=== PATIENT | male | born 1945 | race Caucasian/White ===

== ENCOUNTER → 2016-02-28 | Outpatient (CLI) | payer OTHER ==
[~2016-02-28] MED LIST: AMLO-110 PO; ASPI81TA28 PO; CIPR1TAB10 PO; CLC100 PO; CRD4 PO; DTR5 PO; FOLI400T41 PO; LISI20TA3 PO; LPR25 PO; NTRGSL/4 UT; NXM/40 PO; POLY335019 PO; ROSU20TA PO; RXC5 PO
== END | disposition home or self-care (01) ==
LOC: C.LABSPEC 10:33
PROVIDERS: ATTEND Urology
DX: C61 Malignant neoplasm of prostate (principal)

== ENCOUNTER → 2016-04-05 | Outpatient (CLI) | payer OTHER ==
[~2016-04-05] MED LIST changes: -LISI20TA3 PO
== END | disposition home or self-care (01) ==
LOC: C.LABPBG 12:10
PROVIDERS: ATTEND Urology
DX: C61 Malignant neoplasm of prostate (principal)

== ENCOUNTER → 2016-07-06 | Outpatient (CLI) | payer OTHER ==
[~2016-07-06] MED LIST changes: +LISI20TA3 PO
== END | disposition home or self-care (01) ==
LOC: C.LABPBG 12:10
PROVIDERS: ATTEND Urology
DX: C61 Malignant neoplasm of prostate (principal)

== ENCOUNTER → 2016-08-22 | Outpatient (CLI) | payer OTHER ==
[~2016-08-22] MED LIST changes: -CIPR1TAB10 PO; -LISI20TA3 PO
[2016-08-22 17:44] LABS: BASO % 0.8 %; BASO ABS # 0.06 K/uL (0-0.2); COMPLETE YES; EOS % 2.3 %; HEMATOCRIT 41.4 % (42-52); IG% 0.3 %; LYMPH % 12.8 %; LYMPH ABS # 0.93 K/uL (1.2-3.4); MEAN CELL VOLUME 96.7 fL (80-100); MEAN CORPUSCULAR HEMOGLOBIN 32.2 pg (25-34); MEAN CORPUSCULAR HGB CONC 33.3 g/dl (32-36); MEAN PLATELET VOLUME 10.1 fL (7.4-10.4); MONO % 6.9 %; NEUT % 76.9 %; PLATELET COUNT 186 K/uL (130-400); RED BLOOD COUNT 4.28 M/uL (4.7-6.1); WHITE BLOOD COUNT 7.26 K/uL (4.8-10.8)
[2016-08-22 18:39] LABS: AST/SGOT 16 U/L (15-37); BLOOD UREA NITROGEN 21 mg/dl (7-18); BUN/CREATININE RATIO 18.6 (10-20); CALCIUM 9.4 mg/dl (8.5-10.1); CARBON DIOXIDE 26 mmol/L (21-32); CHLORIDE 106 mmol/L (98-107); GLUCOSE 146 mg/dl (70-99); POTASSIUM 3.6 mmol/L (3.5-5.1); SODIUM 140 mmol/L (136-145)
[2016-08-22 18:45] LABS: ALB/GLOB RATIO 1.1 (0.9-2); ALKALINE PHOSPHATASE 60 U/L (45-117); ALT/SGPT 30 U/L (12-78)
== END | disposition home or self-care (01) ==
LOC: C.LABPBG 13:20
PROVIDERS: ATTEND Internal Medicine Hematology & Oncology
DX: D64.9 Anemia, unspecified (principal)

== ENCOUNTER → 2017-01-28 | Outpatient (CLI) | payer OTHER ==
[~2017-01-28] MED LIST changes: -AMLO-110 PO; -CRD4 PO; -DTR5 PO; -FOLI400T41 PO; +LISI20TA3 PO; -NXM/40 PO; -POLY335019 PO; -RXC5 PO
--- NOTE | 2017-01-28 12:11 | DIAGNOSTIC IMAGING REPORT ---
BONE SCAN WHOLE BODY HISTORY: Prostate carcinoma PROSTATE CANCER RADIOTRACER: 25.6 mCi Tc-99m MDP STUDY/IMAGES: Planar anterior and posterior whole body imaging was performed 3 hours following the intravenous administration of radiotracer. COMPARISON: 12/20/2015 FINDINGS: Bilateral renal activity is present. There are findings of mild scattered degenerative activity of the knees, shoulders, as well as spine. This is similar as compared to the prior study. There is no abnormal activity characteristics. There is increased activity of the xiphoid process unchanged from the prior exam. There is no evidence for metastatic disease pattern. IMPRESSION: 1. Scattered degenerative activity. 2. No evidence for metastatic bone disease. 3. No change from the prior study. The above report was generated using voice recognition software. It may contain grammatical, syntax or spelling errors. Electronically signed by: Romeo King M.D. 01/28/2017 12:10 PM Dictated Date/Time: 01/28/2017 12:08 PM
== END | disposition home or self-care (01) ==
LOC: C.NUCL 07:52
PROVIDERS: ATTEND Radiology Radiation Oncology
DX: C61 Malignant neoplasm of prostate (principal)

== ENCOUNTER → 2017-02-01 | Outpatient (CLI) | payer OTHER ==
[~2017-02-01] MED LIST changes: +GADAVIST IV PRN
--- NOTE | 2017-02-01 11:03 | DIAGNOSTIC IMAGING REPORT ---
PROSTATE MRI COMBO CLINICAL HISTORY: 72 years-old Male presenting with prostate cancer status post prostatectomy. PSA 0.147 ng/mL. COMPARISON STUDY: Pelvic CT dated 12/20/2015. Nuclear bone scan dated 01/28/2017. TECHNIQUE: Multisequence, multiplanar MR imaging of the prostate was performed before and after the administration of intravenous contrast. Additional postprocessing was performed on a separate [employer] workstation by the radiologist for 3-D volumetric segmentation of the prostate and contouring of region(s) of interest (AIDA) for targeting. IV contrast: 10 cc of Gadavist. Subtraction imaging was utilized. FINDINGS: Prostate: The prostate gland is surgically absent. Foci of micrometallic artifact are consistent with postoperative change. There is no abnormal enhancing soft tissue identified at the operative site to suggest recurrent/residual disease. Bladder: The bladder wall is thickened and trabeculated consistent with chronic outlet obstruction. A small diverticulum is seen on the right. Bowel: There is advanced diverticulosis of the sigmoid colon without MRI evidence of acute diverticulitis. Visualized bowel loops are normal in caliber. The rectum is normal as imaged. A small metallic foreign body is suggested along the anterior margin of the rectum. Peritoneum: No free fluid in the pelvis. Lymph nodes: No lymphadenopathy in the visualized portion of the pelvis. Vasculature: Iliac vessels patent. Osseous structures: Normal bone marrow signal intensity. IMPRESSION: 1. The prostate gland is surgically absent. 2. No enhancing soft tissue is identified at the prostatectomy site to suggest recurrent/residual disease. 3. The appearance of the bladder is consistent with chronic outlet obstruction. 4. Additional findings as above. Electronically signed by: Valdemar Wong M.D. 02/01/2017 11:01 AM Dictated Date/Time: 02/01/2017 10:52 AM
== END | disposition home or self-care (01) ==
PROVIDERS: ATTEND Radiology Radiation Oncology
DX: C61 Malignant neoplasm of prostate (principal); Z90.79 Acquired absence of other genital organ(s); R93.41 Abnormal radiologic findings on diagnostic imaging of renal pelvis, ureter, or bladder

== ENCOUNTER 2017-05-17 06:57 | Day surgery (SDC) | payer OTHER ==
[2017-05-03 15:09] VITALS: Ht 180.3 cm; Wt 108.4 kg
--- NOTE | 2017-05-03 15:50 | PAT Medication Instructions ---
Service Date May 03, 2017. Current Home Medication List Aspirin (Aspirin Ec), 81 MG PO QAM Docusate Sodium (Colace), 1 CAP PO QAM Lisinopril (Prinivil), 20 MG PO QAM Metoprolol Succinate (Toprol Xl), 25 MG PO QPM Nitroglycerin (Nitrostat), 0.4 MG UT PRN Rosuvastatin Calcium (Crestor), 20 MG PO QPM Vitamin E (Vitamin E 400 Iu), 400 INTER.UNIT PO QAM Medication Instructions For Your Scheduled Surgery - Check with surgeon and rn intake for instructions: Aspirin (Aspirin Ec), 81 MG PO QAM - Hold the following medications starting 05/04/17: Vitamin E (Vitamin E 400 Iu), 400 INTER.UNIT PO QAM - Hold the following medications the morning of surgery: Lisinopril (Prinivil), 20 MG PO QAM Docusate Sodium (Colace), 1 CAP PO QAM - Take the following medications the morning of surgery with a sip of water: Nitroglycerin (Nitrostat), 0.4 MG UT PRN (if needed) - Take the following medications as scheduled the night before surgery: Rosuvastatin Calcium (Crestor), 20 MG PO QPM Metoprolol Succinate (Toprol Xl), 25 MG PO QPM Nitroglycerin (Nitrostat), 0.4 MG UT PRN (if needed) If you have any questions please call us at [phone] or [phone] or [phone]
[2017-05-03 16:20] LABS: BASO % 0.3 %; BASO ABS # 0.03 K/uL (0-0.2); EOS % 1.2 %; EOS ABS # 0.11 K/uL (0-0.5); HEMATOCRIT 36.5 % (42-52); HEMOGLOBIN 12.5 g/dL (14.0-18.0); IG# 0.05 K/uL (0.00-0.02); LYMPH % 7.5 %; MEAN CELL VOLUME 95.5 fL (80-100); MEAN CORPUSCULAR HEMOGLOBIN 32.7 pg (25-34); MEAN CORPUSCULAR HGB CONC 34.2 g/dl (32-36); MEAN PLATELET VOLUME 9.2 fL (7.4-10.4); MONO % 7.2 %; MONO ABS # 0.67 K/uL (0.11-0.59); NEUT % 83.3 %; NEUT ABS # 7.74 K/uL (1.4-6.5); PLATELET COUNT 169 K/uL (130-400); RED CELL DISTRIBUTION WIDTH CV 13.4 % (11.5-14.5); RED CELL DISTRIBUTION WIDTH SD 46.1 fL (36.4-46.3)
[2017-05-03 16:26] LABS: CALCIUM 8.7 mg/dl (8.5-10.1); CREATININE 0.99 mg/dl (0.60-1.40); POTASSIUM 4.3 mmol/L (3.5-5.1)
--- NOTE | 2017-05-15 13:16 | History and Physical ---
History & Physical Date May 15, 2017. Chief Complaint sinus infections History of Present Illness The patient is a 72 year old male with complaints of chronic sinusitis, headaches, failed medical therapy Past Medical/Surgical History Medical Problems: (1) Allergic rhinitis (2) CAD (coronary artery disease) (3) Diverticulosis (4) Dyslipidemia (5) Fever (6) GERD (gastroesophageal reflux disease) (7) Hypertension (8) Kidney stones (9) Prostate cancer Surgical Problems: (1) History of heart artery stent (2) History of knee replacement procedure of left knee (3) History of knee replacement procedure of right knee Additional History Hepatic Disease: No Kidney Disease: Yes Hypertension: Yes Heart Disease: No Bleeding Tendencies: No Infectious Diseases: No Allergies Coded Allergies: Acetaminophen (Verified Allergy, Mild, Sweating, shakes, 05/03/17) Home Medications Scheduled Amoxicillin (Amoxil), 1 CAP PO BID Aspirin (Aspirin Ec), 81 MG PO QAM Docusate Sodium (Colace), 1 CAP PO QAM Lisinopril (Prinivil), 20 MG PO QAM Metoprolol Succinate (Toprol Xl), 25 MG PO QPM Nitroglycerin (Nitrostat), 0.4 MG UT PRN Rosuvastatin Calcium (Crestor), 20 MG PO QPM Vitamin E (Vitamin E 400 Iu), 400 INTER.UNIT PO QAM Physical Examination Skin: warm/dry, no rash Eyes: normal inspection, EOMI, sclerae normal ENT: + pertinent finding (driange from middle meatus, opacified sinuses on CT) Head: normocephalic Neck: supple Respiratory/Chest: lungs clear Cardiovascular: regular rate, rhythm Abdomen / GI: normal bowel sounds Back: normal inspection Extremities: normal inspection Neurologic/Psych: no motor/sensory deficits Diagnosis chronic sinusitis Plan of Treatment endoscopic sinus surgery
[~2017-05-17] VITALS: Ht 180.3 cm; Wt 108.4 kg
[~2017-05-17 06:57] MED LIST changes: +ACETAMINOPHEN 1000 MG/100 ML IV IV ONE; +AMOX500C3 PO; +CEFAZOLIN 2000MG IV PUSH 15 ML IV SCH; -CLC100 PO; +DOCU-94 PO; -GADAVIST IV PRN; +LACTATED RINGER'S 1000ML 1,000 ML IV SCH; -LPR25 PO; +METO25TA4 PO; +VITA400C3 PO
[2017-05-17 07:31] VITALS: BP 146/67; PULSE 65; TEMP 36.6; O2SAT 96
[2017-05-17] MEDS ORDERED: ONDANSETRON INJ 2 MG/ML 2 ML VIAL IV PRN (08:00)
[2017-05-17] MEDS ORDERED: HYDROmorphone INJ 1 MG/ML SYR IV PRN (08:00)
[2017-05-17] MEDS ORDERED: ATROPINE SULFATE 0.1 MG/ML 5ML SYR IV PRN (08:00)
[2017-05-17] MEDS ORDERED: PROMETHAZINE HCL INJ 12.5 MG in SODIUM CHLORIDE 0.9% 50ML 50 ML IV PRN (08:00)
[2017-05-17] MEDS ORDERED: EpHEDrine SULFATE INJ 50 MG/ML AMP IV PRN (08:00)
[2017-05-17] MEDS ORDERED: PHENYLEPHRINE 100MCG/ML 5ML SYR IV PRN (08:00)
[2017-05-17] MEDS ORDERED: FENTANYL CITRATE INJ 50 MCG/1 ML 2 ML VIAL IV PRN (08:00)
[2017-05-17] MEDS ORDERED: PROPOFOL IV EMULSION 10 MG/ML 20 ML VIAL IV ONE (08:07)
[2017-05-17] MEDS ORDERED: ONDANSETRON INJ 2 MG/ML 2 ML VIAL ONE (08:07)
[2017-05-17] MEDS ORDERED: LIDOCAINE HCL 2% 2 ML VIAL (20MG/ML) ONE (08:07)
[2017-05-17] MEDS ORDERED: DEXAMETHASONE SOD INJ 4 MG/ML VIAL ONE (08:07)
[2017-05-17] MEDS ORDERED: LARYING-O-JET KIT (LTA) ONE (08:07)
[2017-05-17] MEDS ORDERED: FENTANYL CITRATE INJ 50 MCG/1 ML 2 ML VIAL ONE (08:08)
[2017-05-17] MEDS ORDERED: GELATIN SPONGE 12-7MM ONE (09:28)
[2017-05-17] MEDS ORDERED: LIDO 2%/EPINEPHRINE 1:100000 20 ML VIAL INFIL ONE (09:28)
[2017-05-17] MEDS ORDERED: TRIAMCINOLONE ACET 40 MG/ML VIAL ONE (09:28)
[2017-05-17] MEDS ORDERED: EpINEphrine INJ 1MG/ML AMP 1 MG/ML AMP ONE (09:29)
[2017-05-17] MEDS ORDERED: BACITRACIN OINT 15 GM TUBE ONE (09:29)
[2017-05-17] MEDS ORDERED: LIDOCAINE 4% INH SOLN 4 ML BTL ONE (09:29)
--- NOTE | 2017-05-17 09:30 | History & Physical Bridge Note ---
H&P Re-Evaluation Bridge Note: I have examined the patient, reviewed the History & Physical and in the interval since the performance of the History & Physical I have noted the following changes of clinical significance: No changes noted
[2017-05-17] MEDS ORDERED: CEFAZOLIN SOD 2000MG/15 ML IV PUSH IV ONE (09:38)
[2017-05-17] MEDS ORDERED: NURSING VERBAL MED ORDER ONE (09:45)
[2017-05-17] MEDS ORDERED: ROCURONIUM BROMIDE 10 MG/ML 5 ML VIAL IV ONE (10:03)
[2017-05-17] MEDS ORDERED: EpHEDrine SULFATE INJ 50 MG/ML AMP ONE (10:05)
[2017-05-17] MEDS ORDERED: SODIUM CHLORIDE 0.9% INJ 10 ML VIAL ONE (10:05)
[2017-05-17] MEDS ORDERED: GLYCOPYRROLATE INJ 0.2 MG/ML VIAL ONE (10:42)
--- NOTE | 2017-05-17 11:11 | [facility] Post Operative Brief Note ---
Immediate Operative Summary Operative Date May 17, 2017. Pre-Operative Diagnosis Chronic Sinusitis Post-Operative Diagnosis same Procedure(s) Performed R and L frontal, total ethmoid, sphenoid and maxilary antrostomies Surgeon Dr. Casie Lay Lodging Facilities Attendant Surgeon(s) none Estimated Blood Loss 50 cc. Findings Consistent with Post-Op Diagnosis (50cc.) Specimens none Drains None Anesthesia Type General Complication(s) none Disposition Accompanied Pt To Recovery: yes Disposition: Recovery Room / PACU
[2017-05-17] MEDS ORDERED: TRAM-10 PO (11:13)
[2017-05-17] MEDS ORDERED: SODIUM CHLORIDE 0.9% 1000ML 1,000 ML IV SCH (11:14)
--- NOTE | 2017-05-17 11:14 | Discharge Instructions-SurgCtr ---
Discharge Instructions Date of Service May 17, 2017. Visit Reason for Visit: Chronic Sinusitis Discharge Discharge Diagnosis / Problem: same Discharge Goals Goal(s): Improve disease control Activity Recommendations Activity Limitations: resume your previous activity Anesthesia . Post Anesthesia Instructions: If you have had General Anesthesia or IV Sedation: * Do not drive today. * Resume driving when surgeon permits. * Do not make important decisions or sign legal documents today. * Call surgeon for: 1. Temperature elevations greater than 101 degrees F. 2. Uncontrollable pain. 3. Excessive bleeding. 4. Persistent nausea and vomiting. 5. Medication intolerance (nausea, vomiting or rash). * For nausea and vomiting use only clear liquids such as: tea, soda, bouillon until nausea subsides, then gradually increase diet as tolerated. * If you have any concerns or questions, call your surgeon's office. If physician is unavailable and it is an emergency, call 911 or go to the nearest emergency room. . Instructions / Follow-Up Instructions / Follow-Up ACTIVITY RECOMMENDATIONS: * Being up and around is good, but no strenuous activity, heavy lifting or physical exertion for one week. * Keep your head elevated 30 degrees when lying down or sleeping. * Do not blow your nose for 48 hours, sniff back instead. * Avoid hot showers. OVER THE COUNTER MEDICATIONS: * You may use Tylenol * Avoid aspirin or aspirin containing products, e.g. as they may increase bleeding. SPECIAL CARE INSTRUCTIONS: * Expect to have bloody drainage from your nose and/or down your throat for one to three days. Change drip pad as needed. * Begin irrigating your nose with saline solution today, at least six to ten times per day and sniff back to help remove old clots or crust. * You may experience nasal and facial congestion, pain and pressure, this is normal. * Please call with any significant and/or progressive pain, redness, swelling around the eyes, visual changes, fever of 101.5 degrees F, active bleeding or any problems or concerns. * If active bleeding occurs, spray the nose three times at one minute intervals with Afrin spray and call or cell phone: . If unable to reach the doctor, go to the nearest Emergency Department. Special Diet: * Avoid extremely hot fluids. FOLLOW UP VISIT: Follow-up Visit with Dr. Lay If not already scheduled, please call to schedule. Diet Recommendations Home Diet: no limitations Procedures Procedures Performed: R and L frontal, total ethmoid, sphenoid and maxilary antrostomies Pending Studies Studies pending at discharge: no Medical Emergencies . Who to Call and When: Medical Emergencies: If at any time you feel your situation is an emergency, please call 911 immediately. . Non-Emergent Contact Non-Emergency issues call your: Primary Care Provider . . "Provider Documentation" section prepared by Casie Lay. . [facility] Monitoring Program Search Results: no issues identified
[2017-05-17] MEDS ORDERED: KETOROLAC TROMETHAMINE 30 MG/ML VIAL IV. PRN (11:15)
--- NOTE | 2017-05-17 11:22 | [facility] Operative Report ---
Operative Report Operative Date May 17, 2017. Pre-Operative Diagnosis Chronic Sinusitis Post-Operative Diagnosis same Procedure(s) Performed R and L frontal, total ethmoid, sphenoid and maxilary antrostomies Surgeon Dr. Casie Lay Material Clerk Surgeon(s) none Estimated Blood Loss 50 cc. Specimens none Drains None Anesthesia Type General Complication(s) none Disposition yes Recovery Room / PACU Indications 72-year-old male with significant long history of recurrent chronic sinusitis for at least 5 years, failed medical therapy Description of Procedure The patient was brought to the operating room placed in the supine position. General endotracheal anesthesia was induced. He was prepped with Betadine paint and draped in the usual sterile manner. SealedLab device was calibrated and used for the entire procedure. The left sphenoid was cannulated with the guidewire and dilated using the 6 mm balloon as was the right sphenoid sinus there was a significant adhesion in front of the left sphenoid blocking the sphenoid ostia. The left nasal frontal duct was cannulated guidewire dilator using the 6 mm balloon with BrainLab computer guidance. The guidewire was left in place as a marker for frontal sinusotomy. This was performed using the shaver couple with the BrainLab device removed and the residual posterior wall of the agger nasi cell. At this point the residual adhesions blocking the ethmoids and the maxillary ostia were removed opening up the anterior and posterior ethmoid air cells and then opening up the sphenoid ostia by removing the adhesions at the anterior face of the sphenoid. Attention was turned to the right side for the nasofrontal duct could not be cannulated initially. The shaver was then coupled to the BrainLab device and used open up the residual posterior wall of the agger nasi cell and the adhesions up to the nasal frontal duct identifying the nasal frontal duct which was then dilated with a 6 mm balloon. Again the guidewire was left in place as a marker and frontal sinusotomy was performed by removing the posterior wall of the agger nasi cell. At this point total ethmoidectomy is performed removing the adhesions and a blocked posterior ethmoid air cell, delineating the skull base and lamina papyracea I and following the structures anteriorly exonerating all the posterior and all the anterior ethmoid air cells. Maxillary sinuses were probed removing adhesions from the previous white antrostomy openings. The nasal cavity was irrigated with saline. Contour stents were placed in the nasal frontal duct. Propel stents were placed in the middle meatus area. The patient tired procedure well and was taken recovery area in satisfactory condition. I attest to the content of the Intraoperative Record and any orders documented therein. Any exceptions are noted below.
--- NOTE | 2017-05-17 12:06 | Anesthesiology Progress Note ---
Anesthesia Post Op Note Date & Time May 17, 2017 at 12:06 Vital Signs Pain Intensity: 0 Vital Signs Past 12 Hours Date Time Temp Pulse Resp B/P (MAP) Pulse Ox O2 Delivery O2 Flow Rate FiO2 05/17/17 11:55 69 18 143/79 95 Room Air 05/17/17 11:45 36.3 76 22 136/75 94 Room Air 05/17/17 11:35 69 20 140/67 99 Oxymask 10 05/17/17 11:25 67 14 135/65 99 Oxymask 10 05/17/17 11:16 36.0 76 12 137/67 98 Oxymask 10 05/17/17 07:31 36.6 65 20 146/67 (93) 96 Room Air Notes Mental Status: alert / awake / arousable, participated in evaluation Pt Amnestic to Procedure: Yes Nausea / Vomiting: adequately controlled Pain: adequately controlled Airway Patency, RR, SpO2: stable & adequate BP & HR: stable & adequate Hydration State: stable & adequate Anesthetic Complications: no major complications apparent
[2017-05-17 12:07] VITALS: BP 135/65; PULSE 75; TEMP 36.9; O2SAT 96
[2017-05-17 12:37] VITALS: BP 149/82; PULSE 57; TEMP 36.7; O2SAT 95
== END 2017-05-17 13:06 | disposition home or self-care (01) ==
LOC: C.ACU 06:57
PROVIDERS: ATTEND Otolaryngology
DX: J32.9 Chronic sinusitis, unspecified (principal); I25.10 Atherosclerotic heart disease of native coronary artery without angina pectoris; E78.5 Hyperlipidemia, unspecified; K21.9 Gastro-esophageal reflux disease without esophagitis; I10 Essential (primary) hypertension; Z85.46 Personal history of malignant neoplasm of prostate; Z96.653 Presence of artificial knee joint, bilateral; Z88.8 Allergy status to other drugs, medicaments and biological substances; Z79.82 Long term (current) use of aspirin; Z79.899 Other long term (current) drug therapy

== ENCOUNTER → 2017-05-30 | Outpatient (CLI) | payer OTHER ==
[~2017-05-30] MED LIST changes: -ACETAMINOPHEN 1000 MG/100 ML IV IV ONE; +AMOX250C3 PO; -AMOX500C3 PO; -CEFAZOLIN 2000MG IV PUSH 15 ML IV SCH; -LACTATED RINGER'S 1000ML 1,000 ML IV SCH; +TRAM-10 PO; +azo
[2017-05-30 12:43] LABS: BASO % 0.5 %; BASO ABS # 0.03 K/uL (0-0.2); EOS % 1.4 %; EOS ABS # 0.08 K/uL (0-0.5); HEMATOCRIT 38.3 % (42-52); HEMOGLOBIN 12.9 g/dL (14.0-18.0); IG# 0.07 K/uL (0.00-0.02); LYMPH % 9.2 %; LYMPH ABS # 0.52 K/uL (1.2-3.4); MEAN CORPUSCULAR HEMOGLOBIN 32.7 pg (25-34); MEAN CORPUSCULAR HGB CONC 33.7 g/dl (32-36); MEAN PLATELET VOLUME 9.3 fL (7.4-10.4); MONO % 9.7 %; MONO ABS # 0.55 K/uL (0.11-0.59); NEUT ABS # 4.41 K/uL (1.4-6.5); PLATELET COUNT 200 K/uL (130-400); RED CELL DISTRIBUTION WIDTH CV 13.9 % (11.5-14.5); RED CELL DISTRIBUTION WIDTH SD 49.2 fL (36.4-46.3); WHITE BLOOD COUNT 5.66 K/uL (4.8-10.8)
[2017-05-30 12:54] LABS: ALBUMIN 3.6 gm/dl (3.4-5.0); ALT/SGPT 24 U/L (12-78); BLOOD UREA NITROGEN 19 mg/dl (7-18); CALCIUM 9.3 mg/dl (8.5-10.1); CARBON DIOXIDE 25 mmol/L (21-32); GLUCOSE 100 mg/dl (70-99); POTASSIUM 4.3 mmol/L (3.5-5.1); SODIUM 137 mmol/L (136-145)
[2017-05-30 12:57] LABS: ALKALINE PHOSPHATASE 56 U/L (45-117); AST/SGOT 13 U/L (15-37); TOTAL PROTEIN 7.2 gm/dl (6.4-8.2)
== END | disposition home or self-care (01) ==
LOC: C.LABPBG 09:13
PROVIDERS: ATTEND Physician Assistant Medical
DX: C61 Malignant neoplasm of prostate (principal); D64.9 Anemia, unspecified

== ENCOUNTER 2021-01-16 09:55 | Observation (INO) ==
[2021-01-16] MEDS ORDERED: SODIUM CHLORIDE 0.9% 500 ML IV STA (10:10)
--- NOTE | 2021-01-16 10:14 | Emergency Department Note ---
Impression & Plan Pneumonia due to 2019 novel coronavirus, Hypoxia, SOB (shortness of breath) ED Provider Note NAME: MERT CANCHOLA AGE: 76 SEX: M : 1945 ARRIVES VIA: Ambulance INFORMANT: Patient, ED PROVIDER(S): Quang Alaniz DO CHIEF COMPLAINT: Shortness of breath HPI: The patient is a 76-year-old male who presented to emergency department for an evaluation of shortness of breath. The patient's had ongoing symptoms for the last 3 weeks. The patient started having symptoms initially at the end of last month. He was then tested for COVID-19 and was positive around the eighth of this month. He states he has had slowly worsening shortness of breath and cough. He also complains of generalized weakness. The patient's had inter mittent fevers. He has had a nonproductive cough. He complains of no abdominal pain. He has no vomiting. He is noticed no black or bloody bowel movements. His family doctor was unable to see him. He presented to the emergency department for further evaluation. His is here with similar symptoms. He arrived via ambulance. He was noted to have oxygen saturation greater than 90%. He does not normally wear oxygen. He states he has been compliant with his usual outpatient medications. ROS: See above HPI for pertinent positives & negatives. A total of 10 systems reviewed and were otherwise negative. PAST MEDICAL HISTORY: See Below PAST SURGICAL HISTORY: See Below FAMILY HISTORY: See Below SOCIAL HISTORY: See Below HOME MEDICATIONS: See Below ALLERGIES: See Below VITALS: See Below PHYSICAL EXAMINATION: GENERAL: Patient is awake alert in no acute distress patient is resting comfortably and showing no signs of anxiety EYES: The conjunctivae are clear. The pupils are round and reactive. EARS, NOSE, MOUTH AND THROAT: The nose is without any evidence of any deformity. NECK: The neck is nontender and supple. RESPIRATORY: Diminished breath sounds are noted throughout. There is no tachypnea or conversational dyspnea appreciated. CARDIOVASCULAR: Regular rate and rhythm noted there no murmurs rubs or gallops normal S1 normal S2. GASTROINTESTINAL: The abdomen is soft. Abdomen is nontender. MUSCULOSKELETAL/EXTREMITIES: There is no evidence of gross deformity full range of motion is noted in the hips and shoulders. SKIN: There is no obvious evidence of any rash. There are no petechiae, pallor or cyanosis noted. NEUROLOGIC: Patient is awake alert and oriented x3 MEDICAL DECISION MAKING: The patient is a 76-year-old male who presented to the emergency department for an evaluation of difficulty breathing. The patient has had symptoms for approximately 2 to 3 weeks. He was tested positive for Covid at the beginning of this month. The patient states his symptoms continue to worsen. The patient has not been seen by his primary care physician. The patient was immunized against COVID-19 at the beginning of the year. I discussed the patient's laboratory and radiographic studies with him. He was found to have an elevated D-dimer. This led to a CT of the chest. I do feel that CT is more consistent with pneumonia from COVID-19. There was no signs of pulmonary embolism. I discussed the patient's laboratory and radiographic studies with him. He was treated with Decadron in the emergency department. He was reevaluated multiple times. He continues to have significant difficulty breathing especially with any exertion. For this reason I discussed his case with the on-call [facility]. They have agreed to evaluate the patient in the emergency department for further management and disposition. Triage Nursing notes reviewed. Prior medical records reviewed Vital Signs: reviewed and remarkable for intermittent hypoxia. Differential diagnosis: Reactive airway disease, pneumonia, pneumothorax, COPD, CHF, infections, cardiac ischemia, pulmonary embolism, musculoskeletal, gastrointestinal, as well as other pathologies. ER treatment provided: See below Diagnostics interpreted by me: ECG: EKG was obtained in the emergency department. My interpretation is normal sinus rhythm at 78 bpm. Right bundle branch block pattern was noted. This was compared to a tracing from December [id number]. No changes were noted. Cardiac Monitoring: An order was placed for continuous cardiac monitoring. The monitor shows a rate of 74 bpm with sinus rhythm. Laboratory studies: As stated above and show below. Imaging studies: See below Consultation(s): I discussed this case with Dr. Kebede who is on-call for the [facility] group. He will evaluate the patient in the emergency department. Past Med/Surg History Medical History CAD (coronary artery disease) Cancer HX PROSTATE CANCER /SURGERY AND RADIATION Dyslipidemia GERD (gastroesophageal reflux disease) History of skin cancer REMOVED Hypertension Kidney stones LEFT (PROCEDURE FOR), TOLD HAS 12 ON RIGHT SIDE Myocardial Infarction 1997 - PT WOULD NOT CONFIRM HX OF [place] - HX ABDORMAL STRESS TEST Nausea after anesthesia Osteoarthritis Sleep apnea CPAP Slow to wake up after anesthesia Surgical History H/O foot surgery HEEL SPUR REMOVAL H/O hand surgery LEFT FINGER TENDON REPAIR History of bilateral knee replacement History of colonoscopy History of cystoscopy STONE REMOVAL History of ear surgery RT EAR DRUM REPAIR History of endoscopic sinus surgery X 3 05/17/17 - Glidescope #4, ETT#7.5, Straight blade, Grade 1 View, Atraumatic intubation History of esophagogastroduodenoscopy (EGD) History of herniorrhaphy LEFT INGUINAL - MAC #3, ETT# 7.5 HiLo, Grade 3 View, DVL x 1 atraumatic History of left hip replacement MAR 24 2019 History of lithotripsy 06/24/20 [place] History of prostatectomy 01/31/16 - Glidescope#4, ETT# 8.0, HiLo Oral, Atraumatic intubation. History of tooth extraction S/P coronary artery stent placement Family History Father Family history of colonic polyps Hearing loss Mother Cancer Hypertension Other Family history non-contributory No family history of allergies No family history of bleeding disorder Denies family history of Heart disease Stroke Asthma Social History Smoking Status: Unknown if ever smoked Tobacco Type: Cigarettes packs per day: 1; Cigarettes Per Day: QUIT 1994, SMOKED 30 YRS; Second Hand Exposure: No; Hx Alcohol Use: Yes Alcohol type: beer and hard liquor Hx Substance Use: No Preferred Language: Martiniquais Communication Ability: Effective Garland Maker Required: No Beliefs That Will Affect Care: None marital status: Current Living Situation: Spouse current occupational status: retired Feels Safe at Home: Yes Assistive Devices: CPAP, Glasses and Hearing Aid - Bilateral Allergies Allergies Allergy/AdvReac Type Severity Reaction Status Date / Time acetaminophen [From Tylenol] Allergy Unknown PT NOT SURE Verified 12/02/20 15:25 cephalexin [From Keflex] Allergy Unknown PT NOT SURE Verified 12/02/20 15:25 ciprofloxacin Allergy Unknown Unknown Verified 12/02/20 15:25 Sulfa (Sulfonamide Allergy Unknown PT NOT SURE Verified 12/02/20 15:25 Antibiotics) Home Meds Home Medications Medication Instructions Recorded Confirmed lisinopril 20 mg tablet 20 mg PO QPM 01/28/18 01/16/21 aspirin 81 mg tablet,delayed 81 mg PO QAM 12/24/19 01/16/21 release atorvastatin 10 mg tablet (Lipitor) 10 mg PO HS 06/15/20 01/16/21 metoprolol succinate 25 mg 25 mg PO QAM 07/18/20 01/16/21 tablet,extended release 24 hr Previous Rx's Medication Instructions Recorded hydrocodone 5 mg-acetaminophen 325 1 tab PO Q6H PRN #15 tab 09/09/20 mg tablet ofloxacin 0.3 % ear drops 5 drp OTIC (EAR) BID 14 Days #5 ml 11/07/20 nitroglycerin 0.4 mg sublingual 0.4 mg SUBLINGUAL Q5M PRN #25 tab 12/14/20 tablet amoxicillin 875 mg-potassium 1 tab PO BID #20 tab 01/09/21 clavulanate 125 mg tablet (Augmentin) methylprednisolone 4 mg tablets in See Rx Instructions PO DAILY 6 01/09/21 a dose pack (Medrol (Davonte)) Days #21 ea Results & Data (ED) Vital Signs Vital Signs - 24 hr 01/16/21 09:55 01/16/21 11:45 01/16/21 13:14 Temperature 36.7 C Temperature Source Oral Pulse Rate 82 Pulse Rate [Apical] 69 74 Pulse Rhythm Regular Pulse Rhythm [Apical] Regular Regular Pulse Strength Normal Pulse Strength [Apical] Normal Normal Respiratory Rate 18 18 18 Respiratory Effort / Characteristics Non-Labored Non-Labored Respiratory Depth Normal Normal Normal Respiratory Pattern Regular Regular Blood Pressure 116/85 Blood Pressure [Right Arm] 118/79 100/60 Blood Pressure Mean 95 Blood Pressure Mean [Right Arm] 92 73 Blood Pressure Position [Right Arm] Lying Lying Pulse Oximetry 95 95 93 Oxygen Delivery Method Room Air Room Air Room Air Sepsis Recent Fever Within 48 Hours No Sepsis New/Unexplained Change in Mental Status No Sepsis Action Taken by Nursing No Action Required Home Medications Current Medication List: was personally reviewed by me Laboratory Data Attestation: I reviewed the patient's lab results. Result diagrams: 01/16/21 09:25 01/16/21 09:25 Lab Results 11/22/21 11/22/21 11/22/21 Range/Units 09:25 09:25 09:25 WBC 9.66 (4.8-10.8) K/uL RBC 4.79 (4.7-6.1) M/uL Hgb 15.0 (14.0-18.0) g/dL Hct 44.4 (42-52) % MCV 92.7 (80-100) fL MCH 31.3 (25-34) pg MCHC 33.8 (32-36) g/dL RDW Std Deviation 44.4 (36.4-46.3) fL RDW Coeff of Genny 13.0 (11.5-14.5) % Plt Count 425 H (130-400) K/uL MPV 9.2 (7.4-10.4) fL Immature Gran % (Auto) 1.7 % Neut % (Auto) 76.8 % Lymph % (Auto) 9.0 % [place] % (Auto) 11.2 % Eos % (Auto) 1.1 % Baso % (Auto) 0.2 % Neut # (Auto) 7.42 H (1.4-6.5) K/uL Lymph # (Auto) 0.87 L (1.2-3.4) K/uL [place] # (Auto) 1.08 H (0.11-0.59) K/uL Eos # (Auto) 0.11 (0-0.5) K/uL Baso # (Auto) 0.02 (0-0.2) K/uL Immature Gran # (Auto) 0.16 H (0.00-0.02) K/uL PT 10.4 (9.0-12.0) Seconds INR 1.0 (0.9-1.1) APTT 25.2 (21.0-31.0) Seconds PTT Ratio 1.0 D-Dimer 850 H* (0-500) ug/L FEU Carboxyhemoglobin % THgb Sodium 136 (136-145) mmol/L Potassium 4.2 (3.5-5.1) mmol/L Chloride 102 (98-107) mmol/L Carbon Dioxide 24 (21-32) mmol/L Anion Gap 10.0 (3-11) BUN 21 H (7-18) mg/dl Creatinine 1.05 (0.6-1.4) mg/dl Est Cr Clr Drug Dosing Not Reportable Est GFR ( Amer) 80.7 ml/min Est GFR (Non-Af Amer) 69.6 ml/min BUN/Creatinine Ratio 20.2 H (10-20) Glucose 143 H (70-99) mg/dl Calcium 9.2 (8.5-10.1) mg/dl Total Bilirubin 0.6 (0.2-1) mg/dl AST 15 (15-37) U/L ALT 43 (12-78) U/L Alkaline Phosphatase 56 (45-117) U/L Troponin I < 0.015 (0-0.045) ng/ml Total Protein 7.7 (6.4-8.2) gm/dl Albumin 2.9 L (3.4-5.0) gm/dl Globulin 4.8 H (2.5-4.0) gm/dl Albumin/Globulin Ratio 0.6 L (0.9-2) Lipase 213 (73-393) U/L // Range/Units 11:15 WBC (4.8-10.8) K/uL RBC (4.7-6.1) M/uL Hgb (14.0-18.0) g/dL Hct (42-52) % MCV (80-100) fL MCH (25-34) pg MCHC (32-36) g/dL RDW Std Deviation (36.4-46.3) fL RDW Coeff of Genny (11.5-14.5) % Plt Count (130-400) K/uL MPV (7.4-10.4) fL Immature Gran % (Auto) % Neut % (Auto) % Lymph % (Auto) % [place] % (Auto) % Eos % (Auto) % Baso % (Auto) % Neut # (Auto) (1.4-6.5) K/uL Lymph # (Auto) (1.2-3.4) K/uL [place] # (Auto) (0.11-0.59) K/uL Eos # (Auto) (0-0.5) K/uL Baso # (Auto) (0-0.2) K/uL Immature Gran # (Auto) (0.00-0.02) K/uL PT (9.0-12.0) Seconds INR (0.9-1.1) APTT (21.0-31.0) Seconds PTT Ratio D-Dimer (0-500) ug/L FEU Carboxyhemoglobin 0.0 % THgb Sodium (136-145) mmol/L Potassium (3.5-5.1) mmol/L Chloride (98-107) mmol/L Carbon Dioxide (21-32) mmol/L Anion Gap (3-11) BUN (7-18) mg/dl Creatinine (0.6-1.4) mg/dl Est Cr Clr Drug Dosing Est GFR ( Amer) ml/min Est GFR (Non-Af Amer) ml/min BUN/Creatinine Ratio (10-20) Glucose (70-99) mg/dl Calcium (8.5-10.1) mg/dl Total Bilirubin (0.2-1) mg/dl AST (15-37) U/L ALT (12-78) U/L Alkaline Phosphatase (45-117) U/L Troponin I (0-0.045) ng/ml Total Protein (6.4-8.2) gm/dl Albumin (3.4-5.0) gm/dl Globulin (2.5-4.0) gm/dl Albumin/Globulin Ratio (0.9-2) Lipase (73-393) U/L Administered Medications Discontinued Medications Dexamethasone Sodium Phosphate (DexamethasonePf 10 Mg/Ml Vial) 10 mg IV NOW ONE Stop: 01/16/21 12:12 Last Admin: 01/16/21 12:26 Dose: 10 mg Documented by: [id number] Sodium Chloride (Nss) 500 mls @ 999 mls/hr IV .Q31M STA Stop: 01/16/21 10:40 Last Infusion: 01/16/21 10:40 Dose: 0 mls/hr Documented by: [id number] Admin: 01/16/21 10:35 Dose: 999 mls/hr Documented by: [id number] Ioversol (Optiray 320 125ml) 120 ml IV ONCE ONE Stop: 01/16/21 11:43 Last Admin: 01/16/21 11:31 Dose: 120 ml Documented by: [id number] Ondansetron HCl (Ondansetron Inj 2 Mg/Ml 2 Ml Vial) 4 mg IV NOW STA Stop: 01/16/21 12:12 Last Admin: 01/16/21 12:24 Dose: 4 mg Documented by: [id number] Imaging Data Radiologist's Impression: Chest X-Ray 01/16/21 10:10 XR chest 1V portable HISTORY: Atypical Chest Pain COMPARISON: Chest 12/24/2019. FINDINGS: No pneumothorax. No pleural effusions. The cardiac silhouette remains borderline enlarged. No evidence for pulmonary edema. There are patchy peripheral airspace opacities seen within the lungs. This is new from the prior study. No evidence for pulmonary edema. IMPRESSION: There are new patchy bilateral airspace opacities likely representing a viral pneumonia. Follow-up can be performed to ensure resolution. ACT 112: Negative or not required by law. Electronically signed by: Marc Campbell M.D. 01/16/2021 10:35 AM Chest CTA 01/16/21 11:00 CHEST CTA for PULMONARY ARTERIES CT DOSE: HISTORY: Shortness of breath. Covid positive. TECHNIQUE: Multiaxial CT images of the chest were performed following the intravenous administration of contrast to evaluate the pulmonary arteries. Maximal intensity projection images were also obtained. A dose lowering technique was utilized adhering to the principles of ALARA. COMPARISON STUDY: Chest 01/16/2021. Chest CT 07/12/2015. FINDINGS: Normal caliber thoracic aorta with no evidence for dissection. The heart is mildly enlarged. Severe calcified plaque within the coronary arteries. No filling defects within the pulmonary arteries to suggest a pulmonary embolus. No pleural or pericardial effusions. No hilar lymphadenopathy. Mildly enlarged AP window lymph node remains stable measuring 11 mm in short axis diameter. This is likely benign given the long-term stability. Limited views of the upper abdomen demonstrate a normal liver and spleen. Normal adrenal glands. Right- sided nephrolithiasis is partially visualized. Normal caliber esophagus. No fra ctures within the visualized osseous structures. Multifocal patchy peripheral airspace opacities are seen throughout the lungs. This favors a viral pneumonia. No pneumothorax. It should be noted that some of these peripheral airspace opacities were present on the prior study and have increased in size. Therefore, underlying cryptogenic organizing pneumonia could also have a similar appearance. Therefore, a 3-[address] follow-up recommended to ensure resolution of these abnormalities. IMPRESSION: 1. No evidence for pulmonary embolus. 2. Multifocal patchy peripheral airspace opacities are seen throughout the lungs. This favors a viral pneumonia. 3. It should be noted that some of these peripheral airspace opacities were present on the 2016 study and have progressed. Therefore, an underlying cryptogenic organizing pneumonia could also have a similar appearance. Therefore, a 3-[address] follow-up recommended to ensure resolution of these abnormalities. ACT 112: Positive. There are findings on this exam that require communication between the performing entity and the patient following Patient Test Result Information Act ([place] Act 112) guidelines. Electronically signed by: Marc Campbell M.D. 01/16/2021 12:29 PM Discharge Plan Visit Data Chief Complaint: Shortness of Breath/Dyspnea Stated Complaint: SOB, WEAKNESS, COVID + ED Provider: Quang Alaniz Discharge Problem: Pneumonia due to 2019 novel coronavirus, Hypoxia, SOB (shortness of breath) Patient Disposition: Being Evaluated by Hospitalist Forms Stand Alone Forms: My [facility] Prescriptions Prescriptions: No Action ofloxacin 0.3 % drops 5 drp otic (ear) BID 14 Days Qty: 5 RF: 8 nitroglycerin 0.4 mg tablet, sublingual 0.4 mg sublingual Q5M PRN (Reason: chest pain) Qty: 25 RF: 1 methylprednisolone [Medrol (Davonte)] 4 mg tablets,dose pack See Rx Instructions PO DAILY 6 Days Qty: 21 RF: 0 amoxicillin-pot clavulanate [Augmentin] 875-125 mg tablet 1 tab PO BID Qty: 20 RF: 1 metoprolol succinate 25 mg tablet extended release 24 hr 25 mg PO QAM RF: 0 atorvastatin [Lipitor] 10 mg tablet 10 mg PO HS RF: 0 lisinopril 20 mg Tablet 20 mg PO QPM RF: 0 aspirin 81 mg Tablet,Delayed Release (Dr/Ec) 81 mg PO QAM RF: 0 hydrocodone-acetaminophen 5-325 mg tablet 1 tab PO Q6H PRN (Reason: pain) Qty: 15 RF: 0 Referrals Referrals: Marycruz Duran [Primary Care Provider] -
[2021-01-16 10:23] LABS: Basophils # (auto) 0.02 K/uL (0-0.2); Basophils % (auto) 0.2 %; Eosinophils # (auto) 0.11 K/uL (0-0.5); Eosinophils % (auto) 1.1 %; Hematocrit (blood only) 44.4 % (42-52); Immature Granulocytes # (auto) 0.16 K/uL (0.00-0.02); Immature Granulocytes % (auto) 1.7 %; Lymphocytes # (auto) 0.87 K/uL (1.2-3.4); Mean Corpuscular Hemoglobin 31.3 pg (25-34); Mean Corpuscular Hgb Conc 33.8 g/dL (32-36); Mean Corpuscular Volume 92.7 fL (80-100); Mean Platelet Volume 9.2 fL (7.4-10.4); Monocytes # (auto) 1.08 K/uL (0.11-0.59); Monocytes % (auto) 11.2 %; Neutrophils # (auto) 7.42 K/uL (1.4-6.5); Neutrophils % (auto) 76.8 %; Platelet Count 425 K/uL (130-400); RDW Standard Deviation 44.4 fL (36.4-46.3); Red Blood Count 4.79 M/uL (4.7-6.1); White Blood Count 9.66 K/uL (4.8-10.8)
[2021-01-16 10:35] LABS: Partial Thromboplastin Time 25.2 Seconds (21.0-31.0); Prothrombin Time 10.4 Seconds (9.0-12.0)
--- NOTE | 2021-01-16 10:36 | XRay Report ---
XR chest 1V portable HISTORY: Atypical Chest Pain COMPARISON: Chest 12/24/2019. FINDINGS: No pneumothorax. No pleural effusions. The cardiac silhouette remains borderline enlarged. No evidence for pulmonary edema. There are patchy peripheral airspace opacities seen within the lungs . This is new from the prior study. No evidence for pulmonary edema. IMPRESSION: There are new patchy bilateral airspace opacities likely representing a viral pneumonia. Follow-up ca n be performed to ensure resolution. ACT 112: Negative or not required by law. Electronically signed by: Marc Campbell M.D. 01/16/2021 10:35 AM
[2021-01-16 10:40] LABS: Alanine Aminotransferase 43 U/L (12-78); Albumin Level 2.9 gm/dl (3.4-5.0); Aspartate Aminotransferase 15 U/L (15-37); BUN Creatinine Ratio 20.2 (10-20); Blood Urea Nitrogen 21 mg/dl (7-18); Calcium 9.2 mg/dl (8.5-10.1); Carbon Dioxide 24 mmol/L (21-32); Chloride 102 mmol/L (98-107); D Dimer 850 ug/L FEU (0-500); Est GFR (African American) 80.7 ml/min; Est GFR (Non-African American) 69.6 ml/min; Glucose 143 mg/dl (70-99); Lipase 213 U/L (73-393); Potassium 4.2 mmol/L (3.5-5.1); Sodium 136 mmol/L (136-145)
[2021-01-16 10:43] LABS: Albumin Globulin Ratio 0.6 (0.9-2); Alkaline Phosphatase 56 U/L (45-117); Bilirubin,Total 0.6 mg/dl (0.2-1); Globulin 4.8 gm/dl (2.5-4.0); Total Protein 7.7 gm/dl (6.4-8.2); Troponin I < 0.015 ng/ml (0-0.045)
[2021-01-16] MEDS ORDERED: OPTIRAY 320 125ml IV ONE (11:42)
[2021-01-16] MEDS ORDERED: dexAMETHasone**PF** 10 MG/ML VIAL IV ONE (12:11)
[2021-01-16] MEDS ORDERED: ONDANSETRON INJ 2 MG/ML 2 ML VIAL IV STA (12:11)
--- NOTE | 2021-01-16 12:30 | CT Scan Report ---
CHEST CTA for PULMONARY ARTERIES CT DOSE: HISTORY: Shortness of breath. Covid positive. TECHNIQUE: Multiaxial CT images of the chest were performed following the intravenous administration of contrast to evaluate the pulmonary arteries. Maximal intensity projection images were also obtaine d. A dose lowering technique was utilized adhering to the principles of ALARA. COMPARISON STUDY: Chest 01/16/2021. Chest CT 07/12/2015. FINDINGS: Normal caliber thoracic aorta with no evidence for dissection. The heart is mildly enlarged . Severe calcified plaque within the coronary arteries. No filling defects within the pulmonary arter ies to suggest a pulmonary embolus. No pleural or pericardial effusions. No hilar lymphadenopathy. Mi ldly enlarged AP window lymph node remains stable measuring 11 mm in short axis diameter. This is lik maxx benign given the long-term stability. Limited views of the upper abdomen demonstrate a normal sally er and spleen. Normal adrenal glands. Right-sided nephrolithiasis is partially visualized. Normal negar iber esophagus. No fractures within the visualized osseous structures. Multifocal patchy peripheral a irspace opacities are seen throughout the lungs. This favors a viral pneumonia. No pneumothorax. It s hould be noted that some of these peripheral airspace opacities were present on the prior study and h ave increased in size. Therefore, underlying cryptogenic organizing pneumonia could also have a simil ar appearance. Therefore, a 3-[address] follow-up recommended to ensure resolution of these ab normalities. IMPRESSION: 1. No evidence for pulmonary embolus. 2. Multifocal patchy peripheral airspace opacities are seen throughout the lungs. This favors a viral pneumonia. 3. It should be noted that some of these peripheral airspace opacities were present on the 2016 study and have progressed. Therefore, an underlying cryptogenic organizing pneumonia could also have a sim ilar appearance. Therefore, a 3-[address] follow-up recommended to ensure resolution of these abnormalities. ACT 112: Positive. There are findings on this exam that require communication between the performing entity and the patient following Patient Test Result Information Act ([place] Act 112) guidelines. Electronically signed by: Marc Campbell M.D. 01/16/2021 12:29 PM
--- NOTE | 2021-01-16 15:18 | History & Physical Report ---
Date of Service January 16, 2021 Assessment & Plan (1) Pneumonia due to 2019 novel coronavirus: Plan: evidence of patchy ground glass opacities on CTA chest 3 weeks of symptoms, suspect that the pneumonia is resolving, symptoms likely minimized by vaccination status since he was < 94% on room air at one time, will give dexamethasone observe over night plan for 2 step tomorrow to see if he needs oxygen on exertion he appears a little dry on exam, BUN and Cr are stable he admits to not eating/drinking enough will give 1L of NSS (2) SOB (shortness of breath): Plan: due to mild pneumonia, COVID no evidence of PE or other lung disease, no wheezing on exam Plan: observe overnight, try to discharge on 01/17 History of Present Illness Chief Complaint: I feel short of breath Primary Care Provider: Marycruz Duran 76 yo male who is fully vaccinated for COVID-19, presents with several weeks of weakness and now dyspnea. He reports that he and his developed illness at the beginning of the month, maybe on 12/30/20. He knows they were tested for COVID on 01/01/21 and were both positive. They have stayed in their home, getting rest. His has been eating and drinking well but over the past week his appetite has been poor, he has been trying to stay hydrated but he admits he is not drinking enough. No fever or chills, no night sweats, no diarrhea. He admits to some nausea. He has a dry cough and says he feels short of breath when walking but he is able to walk down to the end of his driveway and back without issue. He has a burning in his chest when he walks but it goes away quickly, does not happen every time. He has not had any syncope or light headedness. He is more concerned about his . In the ED he is 94% on room air, he ambulated and dropped to 87%. CTA chest was negative for PE, it did show some patchy ground glass opacities but they were not wide spread. BUN/Cr are stable, electrolytes stable. Will bring him in for observation, make sure his oxygen levels remains stable. Allergies Allergy/AdvReac Type Severity Reaction Status Date / Time acetaminophen [From Tylenol] Allergy Unknown PT NOT SURE Verified 12/02/20 15:25 cephalexin [From Keflex] Allergy Unknown PT NOT SURE Verified 12/02/20 15:25 ciprofloxacin Allergy Unknown Unknown Verified 12/02/20 15:25 Sulfa (Sulfonamide Allergy Unknown PT NOT SURE Verified 12/02/20 15:25 Antibiotics) Home Medications Medication Instructions Recorded Confirmed Type aspirin 81 mg tablet,delayed 81 mg PO QAM 12/24/19 01/16/21 History release atorvastatin 10 mg tablet (Lipitor) 10 mg PO HS 06/15/20 01/16/21 History metoprolol succinate 25 mg 25 mg PO QAM 07/18/20 01/16/21 History tablet,extended release 24 hr hydrocodone 5 mg-acetaminophen 325 1 tab PO Q6H PRN #15 tab 09/09/20 01/16/21 Rx mg tablet ofloxacin 0.3 % ear drops 5 drp OTIC (EAR) BID 14 Days #5 ml 11/07/20 01/16/21 Rx nitroglycerin 0.4 mg sublingual 0.4 mg SUBLINGUAL Q5M PRN #25 tab 12/14/20 01/16/21 Rx tablet ondansetron HCl 4 mg tablet 4 mg PO Q8H PRN 7 Days #20 tab 01/17/21 Rx (Zofran) Past Med/Surg History Medical History CAD (coronary artery disease) Cancer HX PROSTATE CANCER /SURGERY AND RADIATION Dyslipidemia GERD (gastroesophageal reflux disease) History of skin cancer REMOVED Hypertension Kidney stones LEFT (PROCEDURE FOR), TOLD HAS 12 ON RIGHT SIDE Myocardial Infarction 1997 - PT WOULD NOT CONFIRM HX OF MT - HX ABDORMAL STRESS TEST Nausea after anesthesia Osteoarthritis Sleep apnea CPAP Slow to wake up after anesthesia Surgical History H/O foot surgery HEEL SPUR REMOVAL H/O hand surgery LEFT FINGER TENDON REPAIR History of bilateral knee replacement History of colonoscopy History of cystoscopy STONE REMOVAL History of ear surgery RT EAR DRUM REPAIR History of endoscopic sinus surgery X 3 05/17/17 - Glidescope #4, ETT#7.5, Straight blade, Grade 1 View, Atraumatic intubation History of esophagogastroduodenoscopy (EGD) History of herniorrhaphy LEFT INGUINAL - MAC #3, ETT# 7.5 HiLo, Grade 3 View, DVL x 1 atraumatic History of left hip replacement MAR 24 2019 History of lithotripsy 06/24/20 [place] History of prostatectomy 01/31/16 - Glidescope#4, ETT# 8.0, HiLo Oral, Atraumatic intubation. History of tooth extraction S/P coronary artery stent placement Family History Father Family history of colonic polyps Hearing loss Mother Cancer Hypertension Other Family history non-contributory No family history of allergies No family history of bleeding disorder Denies family history of Heart disease Stroke Asthma Social History Smoking Status: Former smoker Tobacco Type: Cigarettes packs per day: 1; Cigarettes Per Day: QUIT 1994, SMOKED 30 YRS; Second Hand Exposure: No; Hx Alcohol Use: Yes Alcohol type: beer and hard liquor Hx Substance Use: No Preferred Language: Swedish Communication Ability: Effective General Technician Required: No Beliefs That Will Affect Care: None marital status: Current Living Situation: Spouse current occupational status: retired How many Children do You have: 1 Other Information That Helps Us Care for You: No Feels Safe at Home: Yes Assistive Devices: None Assistive Devices Comment: B/L hearing aids w/patient Review of Systems Review of Systems: All systems reviewed & are unremarkable except as noted in HPI & below Constitutional: + fatigue and + weakness Respiratory: + cough, + dyspnea, + dyspnea on exertion and + pain on inspiration Gastrointestinal: + nausea Physical Exam Physical Exam: General: well developed, well nourished, no acute distress, comfortable Neck: supple, trachea midline, normal thyroid Lungs: clear to auscultation bilaterally, normal respiratory effort, no accessory muscle use, no distress Heart: regular S1 and S2, no murmur, peripheral pulses normal, capillary refill normal, no edema Abdomen: soft, NT, ND, + BS, no hepatomegaly, normal to percussion Extremities: normal in appearance, no cyanosis, no petechiae, strength is 5/5 bilaterally Neuro: awake, cooperative, moves all extremities, no focal motor deficits, CN II-XII intact, sensation in extremities intact, normal speech Skin: warm, dry, no rash, normal turgor Psych: Awake, alert oriented x 3, euthymic affect Results & Data Results & Data ([facility]) Vital Signs (Past 12 Hours) Vital Signs Temp Pulse Pulse Resp BP BP Pulse Ox 01/16/21 13:14 74 18 100/60 93 01/16/21 11:45 69 18 118/79 95 01/16/21 09:55 36.7 C 82 18 116/85 95 Laboratory Results Laboratory Results - last 24 hr 01/16/21 01/16/21 01/16/21 09:25 09:25 09:25 WBC 9.66 RBC 4.79 Hgb 15.0 Hct 44.4 MCV 92.7 MCH 31.3 MCHC 33.8 RDW Std Deviation 44.4 RDW Coeff of Genny 13.0 Plt Count 425 H MPV 9.2 Immature Gran % (Auto) 1.7 Neut % (Auto) 76.8 Lymph % (Auto) 9.0 [place] % (Auto) 11.2 Eos % (Auto) 1.1 Baso % (Auto) 0.2 Neut # (Auto) 7.42 H Lymph # (Auto) 0.87 L [place] # (Auto) 1.08 H Eos # (Auto) 0.11 Baso # (Auto) 0.02 Immature Gran # (Auto) 0.16 H PT 10.4 INR 1.0 APTT 25.2 PTT Ratio 1.0 D-Dimer 850 H* Carboxyhemoglobin Sodium 136 Potassium 4.2 Chloride 102 Carbon Dioxide 24 Anion Gap 10.0 BUN 21 H Creatinine 1.05 Est Cr Clr Drug Dosing Not Reportable Est GFR ( Amer) 80.7 Est GFR (Non-Af Amer) 69.6 BUN/Creatinine Ratio 20.2 H Glucose 143 H Calcium 9.2 Total Bilirubin 0.6 AST 15 ALT 43 Alkaline Phosphatase 56 Troponin I < 0.015 Total Protein 7.7 Albumin 2.9 L Globulin 4.8 H Albumin/Globulin Ratio 0.6 L Lipase 213 SARS-CoV-2 (PCR) 01/16/21 01/16/21 11:15 12:34 WBC RBC Hgb Hct MCV MCH MCHC RDW Std Deviation RDW Coeff of Genny Plt Count MPV Immature Gran % (Auto) Neut % (Auto) Lymph % (Auto) [place] % (Auto) Eos % (Auto) Baso % (Auto) Neut # (Auto) Lymph # (Auto) [place] # (Auto) Eos # (Auto) Baso # (Auto) Immature Gran # (Auto) PT INR APTT PTT Ratio D-Dimer Carboxyhemoglobin 0.0 Sodium Potassium Chloride Carbon Dioxide Anion Gap BUN Creatinine Est Cr Clr Drug Dosing Est GFR ( Amer) Est GFR (Non-Af Amer) BUN/Creatinine Ratio Glucose Calcium Total Bilirubin AST ALT Alkaline Phosphatase Troponin I Total Protein Albumin Globulin Albumin/Globulin Ratio Lipase SARS-CoV-2 (PCR) POSITIVE A* Code Status & VTE Plan VTE Prophylaxis Plan VTE Prophylaxis will be ordered: Yes PG Care Time/CCT Total # of Minutes Spent Total Time Spent with Patient: Total time spent is greater than 50% in coordination of care (as documented) at patient's floor/unit and/or counseling patient: Coding Level of Care Code INT OBSERVATION CARE 50M LVL 2 Diagnoses Pneumonia due to 2019 novel coronavirus U07.1; J12.82 SOB (shortness of breath) R06.02
[2021-01-16] MEDS ORDERED: ONDANSETRON INJ 2 MG/ML 2 ML VIAL IV PRN (17:13)
[2021-01-16] MEDS ORDERED: SODIUM CHLORIDE 0.9% 1000ML 1,000 ML IV SCH (17:13)
[2021-01-16] MEDS: ENOXAPARIN INJ 40 MG/0.4 ML SYR SQ SCH (18:31)
[2021-01-16] MEDS ORDERED: ATORVASTATIN 10 MG TAB PO SCH (21:00)
[2021-01-17] MEDS: ENOXAPARIN INJ 40 MG/0.4 ML SYR SQ SCH (05:53)
[2021-01-17 08:48] LABS: Hemoglobin 14.1 g/dL (14.0-18.0); Mean Corpuscular Hemoglobin 30.9 pg (25-34); Mean Corpuscular Hgb Conc 33.6 g/dL (32-36); Mean Corpuscular Volume 92.1 fL (80-100); Platelet Count 436 K/uL (130-400); RDW Coefficient of Variation 12.9 % (11.5-14.5); RDW Standard Deviation 43.3 fL (36.4-46.3); Red Blood Count 4.56 M/uL (4.7-6.1); White Blood Count 7.97 K/uL (4.8-10.8)
[2021-01-17] MEDS ORDERED: METOPROLOL SUCC 25MG EXT REL TAB PO SCH (09:00)
[2021-01-17] MEDS ORDERED: ASPIRIN 81 MG ECTAB PO SCH (09:00)
[2021-01-17] MEDS ORDERED: dexAMETHasone 6 MG in SYRINGE 0 ML IV SCH (09:00)
[2021-01-17 09:28] LABS: BUN Creatinine Ratio 19.1 (10-20); C Reactive Protein 1.24 mg/dl (0-0.29); Calcium 9.2 mg/dl (8.5-10.1); Creatinine Clr Calc Pharmacy 75.1 ml/min; Est GFR (African American) 83.5 ml/min; Est GFR (Non-African American) 72.1 ml/min; Potassium 4.1 mmol/L (3.5-5.1)
--- NOTE | 2021-01-18 06:22 | Electrocardiogram Report ---
Test Reason : Blood Pressure : / mmHG Vent. Rate : 078 BPM Atrial Rate : 078 BPM P-R Int : 194 ms QRS Dur : 136 ms QT Int : 412 ms P-R-T Axes : 059 -16 -02 degrees QTc Int : 469 ms Normal sinus rhythm Right bundle branch block Moderate voltage criteria for LVH, may be normal variant Abnormal ECG When compared with ECG of 24-DEC-2019 09:24, No significant change was found Confirmed by Yusfu Escobar ([id number]) on 01/18/2021 6:22:17 AM Referred By: REFERRED SELF Confirmed By:Yusuf Escobar
--- NOTE | 2021-01-18 09:47 | Discharge Summary ---
Date of Service January 17, 2021 Admission HPI Per Admitting Provider 76 yo male who is fully vaccinated for COVID-19, presents with several weeks of weakness and now dyspnea. He reports that he and his developed illness at the beginning of the month, maybe on 12/30/20. He knows they were tested for COVID on 01/01/21 and were both positive. They have stayed in their home, getting rest. His has been eating and drinking well but over the past week his appetite has been poor, he has been trying to stay hydrated but he admits he is not drinking enough. No fever or chills, no night sweats, no diarrhea. He admits to some nausea. He has a dry cough and says he feels short of breath when walking but he is able to walk down to the end of his driveway and back without issue. He has a burning in his chest when he walks but it goes away quickly, does not happen every time. He has not had any syncope or light headedness. He is more concerned about his . In the ED he is 94% on room air, he ambulated and dropped to 87%. CTA chest was negative for PE, it did margarita w some patchy ground glass opacities but they were not wide spread. BUN/Cr are stable, electrolytes stable. Will bring him in for observation, make sure his oxygen levels remains stable. Principal Diagnosis Dyspnea due to COVID 19 pneumonia Discharge Exam General: well developed, well nourished, no acute distress, comfortable Neck: supple, trachea midline, normal thyroid Lungs: clear to auscultation bilaterally, normal respiratory effort, no accessory muscle use, no distress Heart: regular S1 and S2, no murmur, peripheral pulses normal, capillary refill normal, no edema Abdomen: soft, NT, ND, + BS, no hepatomegaly, normal to percussion Extremities: normal in appearance, no cyanosis, no petechiae, strength is 5/5 bilaterally Neuro: awake, cooperative, moves all extremities, no focal motor deficits, CN II-XII intact, sensation in extremities intact, normal speech Skin: warm, dry, no rash, normal turgor Psych: Awake, alert oriented x 3, euthymic affect Discharge Data Allergies Allergy/AdvReac Type Severity Reaction Status Date / Time acetaminophen [From Tylenol] Allergy Unknown PT NOT SURE Verified 12/02/20 15:25 cephalexin [From Keflex] Allergy Unknown PT NOT SURE Verified 12/02/20 15:25 ciprofloxacin Allergy Unknown Unknown Verified 12/02/20 15:25 Sulfa (Sulfonamide Allergy Unknown PT NOT SURE Verified 12/02/20 15:25 Antibiotics) Consultations 01/16/21 13:19 ED Decision to Admit Stat Ordered Studies 01/16/21 11:00 CT angio chest PE protocol Stat Hospital Course (1) Pneumonia due to 2019 novel coronavirus: evidence of patchy ground glass opacities on CTA chest 3 weeks of symptoms, suspect that the pneumonia is resolving, symptoms likely minimized by vaccination status he never required oxygen in the 24 hours he was here 2 step done by respiratory therapy, he did not require oxygen on exertion either no dexamethasone needed going forward discharge to home, will arrange for home health services discussed with patient's son at time of discharge (2) SOB (shortness of breath): due to mild pneumonia, COVID no evidence of PE or other lung disease, no wheezing on exam 2 step on day of discharge shows no need for home oxygen at rest or on exertion I certify that this patient is under my care and that I, or a physicians dental assistant medical assistant working with me, had a face to-face encounter that meets the home health qoit-tn-pili encounter requirements with this patient. The encounter with the patient was in whole, or in part, for the following medical condition, which is the primary reason for home health care (list medical condition): I certify that, based on my findings, the following services are medically necessary home health services: My clinical findings support the need for the above services because: PT Assessment for Endurance / Balance / Strength Skilled Nsg Assessment Further, I certify that my clinical findings support that this patient is homebound (i.e. absences from home require considerable and taxing effort and are for medical reasons or sabianism services or infrequently or of short duration when for other reasons) because: Certification for Home Health Services: Based on the above findings, I certify that this patient is confined to the home and needs intermittent mcc care, physical therapy and/or speech therapy or continues to need occupational therapy. The patient is under my care, and I have initiated the establishment of the plan of care. This patient will be followed by a physician who will periodically review the plan of care. Total Time Total Time Spent Total Time Spent (In Minutes): 34 minutes Discharge Plan Discharge Items Patient Disposition: Home - Home Health Services Reason For Visit: COVID 19 PNEUMONIA Discharge Diagnosis: COVID 19 infection pneumonia, likely resolving Condition on Discharge: Good Goals: stay well nourished, well hydrated Activity: Resume your previous activity Non-emergency contact: Primary Care Provider Call non-emergency contact if: you have any medication questions Follow-up/Referrals: Marycruz Duran [Primary Care Provider] - 02/23/21 11:30 am (You will be seeing Dr Miller) Diet: Regular Addtl Attending Provider Instructions: Medications: - LISINOPRIL: I want you to hold this medication for the next few days, you can resume on 01/20/21 COVID 19 infection: the CT of the chest shows that you likely have a resolving pneumonia you did not require any oxygen while here I had respiratory therapy check your oxygen levels while walking and you did not drop lower than 89%, thus no oxygen needed you will likely feel winded when exerting yourself but that should resolve in 1-2 weeks since you do not need oxygen, you do not need dexamethasone (steroid) stay well nourished and well hydrated, get plenty of rest you are no longer contagious as it has been more than 2 weeks since onset of symptoms Pending Studies at Discharge: No Stand-Alone Forms: My [facility] [place], Smoking Cessation Medications and DC Order Prescriptions: New ondansetron HCl [Zofran] 4 mg tablet 4 mg PO Q8H PRN (Reason: nausea and vomiting) 7 Days Qty: 20 RF: 1 Continued ofloxacin 0.3 % drops 5 drp otic (ear) BID 14 Days Qty: 5 RF: 8 nitroglycerin 0.4 mg tablet, sublingual 0.4 mg sublingual Q5M PRN (Reason: chest pain) Qty: 25 RF: 1 metoprolol succinate 25 mg tablet extended release 24 hr 25 mg PO QAM RF: 0 atorvastatin [Lipitor] 10 mg tablet 10 mg PO HS RF: 0 aspirin 81 mg Tablet,Delayed Release (Dr/Ec) 81 mg PO QAM RF: 0 hydrocodone-acetaminophen 5-325 mg tablet 1 tab PO Q6H PRN (Reason: pain) Qty: 15 RF: 0 Discontinued methylprednisolone [Medrol (Davonte)] 4 mg tablets,dose pack See Rx Instructions PO DAILY 6 Days Qty: 21 RF: 0 amoxicillin-pot clavulanate [Augmentin] 875-125 mg tablet 1 tab PO BID Qty: 20 RF: 1 lisinopril 20 mg Tablet 20 mg PO QPM RF: 0 Discharge Orders: Discharge Order (Routine); Ordered 01/17/21 Ordered By: Giovanni Antoine Admission Data Admit Date/Time: 01/16/21 15:17 Attending Provider: Giovanni Antoine Admit Provider: Giovanni Antoine Primary Care Provider: Marycruz Duran Other Providers: Giovanni Antoine ; [facility] Other Interventions: Discharge Summary Assessment (RN) Last Done: 01/17/21 15:42 Coding Level of Care Code 22611 OBS Care - Discharge Diagnoses Pneumonia due to 2019 novel coronavirus U07.1; J12.82 SOB (shortness of breath) R06.02
== END 2021-01-17 17:41 | disposition home health service (06) ==
LOC: ED 09:55 → 3W 09:55

== ENCOUNTER 2024-07-02 11:25 | Inpatient (IN) ==
[2024-07-02 12:11] LABS: Hematocrit (blood only) 37.6 % (42.0-52.0); Hemoglobin 12.5 g/dl (14.0-18.0); Mean Corpuscular Hemoglobin 29.8 pg (25.0-34.0); Mean Corpuscular Hgb Conc 33.2 g/dL (32.0-36.0); Mean Corpuscular Volume 89.5 fL (80.0-100.0); Mean Platelet Volume 8.9 fL (9.4-12.4); Platelet Count 261 K/uL (130-400); RDW Coefficient of Variation 13.3 % (11.5-14.5); RDW Standard Deviation 43.6 fL (36.4-46.3); White Blood Count 13.73 K/ul (4.8-10.8)
[2024-07-02 12:29] LABS: Alanine Aminotransferase 12 U/L (7-52); Albumin Globulin Ratio 0.9 (0.9-2); Albumin Level 3.7 gm/dl (3.4-5.0); Alkaline Phosphatase 59 U/L (34-104); Anion Gap 8 (3-11); Aspartate Aminotransferase 14 U/L (13-39); BUN Creatinine Ratio 28.8 (10-20); Blood Urea Nitrogen 21 mg/dl (6-23); Calcium 9.1 mg/dl (8.6-10.3); Carbon Dioxide 25 mmol/L (21-32); Chloride 100 mmol/L (98-107); Globulin 4.1 gm/dl (2.5-4.0); Glucose 105 mg/dl (70-99(Fasting)); Potassium 3.9 mmol/L (3.5-5.1); Sodium 133 mmol/L (136-145); Total Protein 7.8 gm/dl (6.0-8.3)
--- NOTE | 2024-07-02 12:29 | Emergency Department Note ---
Impression & Plan UTI (urinary tract infection), Sepsis ED Provider Note NAME: MERT CANCHOLA AGE: 79 SEX: M : 1945 ARRIVES VIA: Ambulance INFORMANT: Patient, ED PROVIDER(S): Michael Barrios MD CHIEF COMPLAINT: Fevers, chills, body aches, self catheterizes MEDICAL DECISION MAKING: Patient presents due to concern for fevers chills likely rigors in the setting of requiring self-catheterization and suprapubic pain. IV was established and blood work was obtained along with sepsis protocols and the patient was ordered empiric IV antibiotics. Chest x-ray is unremarkable. The patient's blood work shows a white count of 13 with a mild anemia hemoglobin 12.5 with normal platelet count. The patient's kidney function is unremarkable. Magnesium slightly low 1.6. Urinalysis does show concern for infection the patient already received empiric antibiotics. Discussion w/ other healthcare providers: Marc Stoner PA-C and Dr. Barker inpatient medicine service Prior /Outside records reviewed: I reviewed part of a primary care visit from June 15, 2024. From Werner Bello. Patient with a known history of arthritis LAURENCE hypertension dyslipidemia CAD. I also reviewed part of urology visit from March 25, 2024. Patient with a known history of urinary retention and a bladder neck contracture. Seen by Dr. Childs for cystoscopy at that time. Differential diagnosis: Infection, dehydration, metabolic abnormality, hypo/hyperglycemia, electrolyte imbalance, anemia, UTI, pneumonia, thyroid dysfunction among others were considered. Diagnostics, as interpreted by me: ECG: Sinus tachycardia, rate of 110, wide QRS, normal axis right bundle branch block pattern. Cardiac monitoring: An order was placed for continuous cardiac monitoring. The monitor shows a rate of 95 with sinus rhythm. Patient was placed on pulse oximetry Medical decision rules: None Imaging studies: I informally interpreted the patient's Chest x-ray is without pneumonia with formal report to follow. HPI: Patient presents due to concern for fevers chills and bodyaches. The patient states that he he was treated for UTI but was having some weakness and fatigue and out of concerns for anemia the patient was stopped of his antibiotic. The patient states that earlier in the week he started to feel unwell and then eventually developed some bodyaches and a fever at home. The patient had called the office and they told him that if he had any worsening symptoms that he should present here for further evaluation treatment. The patient states that he does self catheterize at home. The patient states that he has had some lower abdominal/pelvic pain. No leg pain. The patient reports that he had an episode of rigors after getting out of the shower this morning and thus called and presented here for evaluation. Patient denies any chest pains or shortness of breath. PAST MEDICAL HISTORY: See Below PAST SURGICAL HISTORY: See Below SOCIAL HISTORY: See Below HOME MEDICATIONS: See Below ALLERGIES: See Below VITALS: See Below PHYSICAL EXAMINATION: GENERAL: NAD, non-toxic. EYE EXAM: Normal conjunctiva. PERRL, no anisocoria and EOM's grossly intact w/o pain. OROPHARYNX: Moist mucus membranes, grossly normal dentition. NECK: Trachea midline, no stridor. Supple, no nuchal rigidity, no adenopathy, non-tender. No signs of meningismus. FROM of the neck with good chin to chest and neck extension. LUNGS: Clear to auscultation. Normal chest wall mechanics. HEART: Tachycardic and regular, no MRG. ABDOMEN: Abdomen soft, suprapubic pain without other abdominal pain, not peritonitic, no masses, no rebound or guarding. BACK: No CVA TTP. SKIN: No rashes and no bruising. UPPER EXTREMITIES: Upper extremities are grossly normal. LOWER EXTREMITIES: Grossly normal, no edema. No obvious rashes noted. Compartments are soft throughout. NEURO EXAM: Awake and alert, follows commands, no obvious facial asymmetry, normal speech, moves all 4 extremities. Past Med/Surg History Problem List (Updated 07/07/24 @ 15:47 by Michael Barrios MD) Sepsis (Acute) Anemia UTI (urinary tract infection) (Acute) Bilateral hip pain Right leg numbness Presence of bare metal stent in left circumflex coronary artery Presence of drug coated stent in LAD coronary artery Urinary retention (Acute) Bladder neck contracture Chronic rhinitis Chronic sinusitis, unspecified Constipation Chronic otitis media of right ear with perforated tympanic membrane Mixed conductive and sensorineural hearing loss of left ear with restricted hearing of right ear Erectile dysfunction Arthritis (Acute) Calculus, bladder, diverticulum (Acute) CAD (coronary artery disease) (Acute) follows w/ Kip Vikas, cardio History of basal cell carcinoma (Acute) Depression Sleep apnea CPAP Hypertension Dyslipidemia Prostate cancer (12/08/15) "STAGING: Prostate, adenocarcinoma, madalyn 3 + 4, PSA 4.95, pT2cN0, positive apical margin -Radical Prostatectomy - 01/31/2016 -Rising PSA in 03/2016, elevated to 0.147 on 12/21/2016 Lupron 22.5 mg IM February 01, 2017 Lupron 22.5 mg IM May 02, 2017, completed 6 month of androgen deprivation Status post completion of salvage radiation therapy the prostate bed May 28, 2017 received 6840 cGy" Medical History Sepsis History of nephrolithotomy with removal of calculi 01/04/2024 Sleep apnea cpap Long-term current use of intravenous immunoglobulin (IVIG) gets treated for low RBC count every 6 wks last one [facility] catheter in place Bleeds easily Sinus infection on treatment now for [address] Ozzie Kern with [facility] to be finished on 01/09/24 Fatigue History of prostate cancer (~2015) XRT History of COVID-19 (~2020) covid pneumonia, hospitalized ~1-2 days; resolved Slow to wake up after anesthesia Nausea after anesthesia Kidney stones hx and at present History of skin cancer REMOVED Osteoarthritis GERD (gastroesophageal reflux disease) Myocardial Infarction (~1997) 1997 Surgical History Hx of cardiac catheterization x 2, 1997 & 2014, 1 stent each time. History of total bilateral knee replacement H/O prostatectomy S/P coronary artery stent placement (~1997) 1997 x 1 stent and 2014 x 1; [facility] History of bilateral knee replacement History of left hip replacement (~03/24/19) H/O hand surgery lt finger tendon repair H/O foot surgery HEEL SPUR REMOVAL History of lithotripsy (~06/24/20) History of cystoscopy stone removal History of esophagogastroduodenoscopy (EGD) History of colonoscopy History of herniorrhaphy lt inguinal History of prostatectomy (~01/31/16) History of tooth extraction History of endoscopic sinus surgery X 3 History of ear surgery RT EAR DRUM REPAIR Family History Father Family history of colonic polyps Hearing loss Mother Cancer Hypertension Other Family history non-contributory No family history of allergies No family history of bleeding disorder Denies family history of Ovarian cancer Prostate cancer Heart disease Myocardial infarction Breast cancer Colorectal cancer Stroke Asthma Social History Smoking Status: Former smoker Tobacco Type: Cigarettes Age Started Using Tobacco: 17; Age Quit Using Tobacco: 50; packs per day: 0.25; Cigarettes Per Day: 1/2 PPD; Second Hand Exposure: No; Do You Dip or Chew Tobacco: No; Hx Alcohol Use: Yes Alcohol type: beer Hx Substance Use: No Preferred Language: [place] Communication Ability: Effective Visual Impairment: No Limitations Hearing Ability: Use of Hearing Aid 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 Required: No Beliefs That Will Affect Care: None marital status: Current Living Situation: Spouse current occupational status: retired How many Children do You have: 1 Feels Safe at Home: Yes Childhood Exposure to Second-Hand Smoke: No Diet: regular caffeine: Yes during the past year weight has: remained stable Seatbelt Use: always Assistive Devices: CPAP and Other Allergies Allergies Allergy/AdvReac Type Severity Reaction Status Date / Time acetaminophen [From Tylenol] Allergy Unknown cold sweats Verified 06/15/24 08:50 cephalexin [From Keflex] Allergy Unknown Unknown Verified 07/02/24 12:52 Sulfa (Sulfonamide Allergy Unknown Unknown Verified 06/15/24 08:50 Antibiotics) Home Meds Home Medications Medication Instructions Recorded Confirmed rosuvastatin 20 mg tablet 20 mg PO UD 07/26/21 07/02/24 cyanocobalamin (vitamin B-12) 500 1,000 mcg PO DAILY 12/03/23 07/02/24 mcg tablet Previous Rx's Medication Instructions Recorded telmisartan 20 mg tablet 20 mg PO DAILY #90 tabs 03/04/24 nitroglycerin 0.4 mg sublingual 0.4 mg sublingual Q5M PRN chest 04/27/24 tablet (Nitrostat) pain #25 tabs ciprofloxacin HCl 750 mg tablet 750 mg PO BID 6 days #12 tabs 07/06/24 Results & Data (ED) Vital Signs Vital Signs - 24 hr 07/02/24 11:34 07/02/24 11:59 Temperature 37.2 C Temperature Source Temporal Artery Scan Pulse Rate 107 H 104 H Respiratory Rate 20 Respiratory Effort / Characteristics Non-Labored Respiratory Depth Normal Blood Pressure 116/64 Blood Pressure Mean 81 Pulse Oximetry 98 Oxygen Delivery Method Room Air Sepsis Recent Fever Within 48 Hours Yes Sepsis New/Unexplained Change in Mental Status No Sepsis Action Taken by Nursing No Action Required Home Medications Current Medication List: was personally reviewed by me Laboratory Data Attestation: I reviewed the patient's lab results. 07/05/24 09:29 07/05/24 09:29 Lab Results 07/02/24 07/02/24 07/02/24 Range/Units 11:43 11:43 12:45 WBC 13.73 H (4.8-10.8) K/ul RBC 4.20 L (4.70-6.10) M/uL Hgb 12.5 L (14.0-18.0) g/dl Hct 37.6 L (42.0-52.0) % MCV 89.5 (80.0-100.0) fL MCH 29.8 (25.0-34.0) pg MCHC 33.2 (32.0-36.0) g/dL RDW Std Deviation 43.6 (36.4-46.3) fL RDW Coeff of Genny 13.3 (11.5-14.5) % Plt Count 261 (130-400) K/uL MPV 8.9 L (9.4-12.4) fL Immature Gran % (Auto) 0.7 % Neut % (Auto) 95.1 % Lymph % (Auto) 1.8 % [place] % (Auto) 2.3 % Eos % (Auto) 0.0 % Baso % (Auto) 0.1 % Neut # (Auto) 13.05 H (1.40-6.50) K/uL Lymph # (Auto) 0.25 L (1.20-3.40) K/uL [place] # (Auto) 0.32 (0.11-0.59) K/uL Eos # (Auto) 0.00 (0.00-0.50) K/uL Baso # (Auto) 0.02 (0.00-0.20) K/uL Immature Gran # (Auto) 0.09 (0.01-0.20) K/uL Polychromasia 1+ Spherocytes 1+ Tear Drop Cells 1+ Sodium 133 L (136-145) mmol/L Potassium 3.9 (3.5-5.1) mmol/L Chloride 100 (98-107) mmol/L Carbon Dioxide 25 (21-32) mmol/L Anion Gap 8 (3-11) BUN 21 (6-23) mg/dl Creatinine 0.73 (0.6-1.4) mg/dl Est Cr Clr Drug Dosing Not Reportable eGFR 93.71 BUN/Creatinine Ratio 28.8 H (10-20) Glucose 105 H (70-99(Fasting)) mg/dl Lactate 1.0 (0.4-2.0) mmol/L Calcium 9.1 (8.6-10.3) mg/dl Magnesium 1.6 L Cancelled (1.7-2.4) mg/dl Total Bilirubin 1.0 (0.2-1.0) mg/dl AST 14 (13-39) U/L ALT 12 (7-52) U/L Alkaline Phosphatase 59 (34-104) U/L Total Protein 7.8 (6.0-8.3) gm/dl Albumin 3.7 (3.4-5.0) gm/dl Globulin 4.1 H (2.5-4.0) gm/dl Albumin/Globulin Ratio 0.9 (0.9-2) Procalcitonin 1.43 H (0-0.5) ng/ml Urine Color Urine Appearance (Clear) Urine pH (4.5-7.5) Ur Specific [place] (1.000-1.030) Urine Protein (Negative) Urine Glucose (UA) (Negative) Urine Ketones (Negative) Urine Blood (Negative) Urine Nitrite (Negative) Urine Bilirubin (Negative) Urine Urobilinogen (Negative) Ur Leukocyte Esterase (Negative) Urine WBC (Auto) (0-5) /hpf Urine RBC (Auto) (0-2) /hpf U Hyaline Cast (Auto) (0-2) /lpf U Epithel Cells (Auto) (0-2) /hpf Urine Bacteria (Auto) (None Seen) Enterobacterales (PCR) (NotDetected) blaIMP Car res Gene PCR (NotDetected) KPC-Carbap Res Gene PCR (NotDetected) blaNDM Car Res Gene PCR (NotDetected) OXA-48 Carbapenem Resis Gene (PCR) (NotDetected) blaVIM Car Res Gene PCR (NotDetected) CTX-M Gene Resistance (PCR) (NotDetected) Bld Cult ID Panel PCR (NotDetected) 07/02/24 07/02/24 Range/Units 12:53 12:56 WBC (4.8-10.8) K/ul RBC (4.70-6.10) M/uL Hgb (14.0-18.0) g/dl Hct (42.0-52.0) % MCV (80.0-100.0) fL MCH (25.0-34.0) pg MCHC (32.0-36.0) g/dL RDW Std Deviation (36.4-46.3) fL RDW Coeff of Genny (11.5-14.5) % Plt Count (130-400) K/uL MPV (9.4-12.4) fL Immature Gran % (Auto) % Neut % (Auto) % Lymph % (Auto) % [place] % (Auto) % Eos % (Auto) % Baso % (Auto) % Neut # (Auto) (1.40-6.50) K/uL Lymph # (Auto) (1.20-3.40) K/uL [place] # (Auto) (0.11-0.59) K/uL Eos # (Auto) (0.00-0.50) K/uL Baso # (Auto) (0.00-0.20) K/uL Immature Gran # (Auto) (0.01-0.20) K/uL Polychromasia Spherocytes Tear Drop Cells Sodium (136-145) mmol/L Potassium (3.5-5.1) mmol/L Chloride (98-107) mmol/L Carbon Dioxide (21-32) mmol/L Anion Gap (3-11) BUN (6-23) mg/dl Creatinine (0.6-1.4) mg/dl Est Cr Clr Drug Dosing eGFR BUN/Creatinine Ratio (10-20) Glucose (70-99(Fasting)) mg/dl Lactate (0.4-2.0) mmol/L Calcium (8.6-10.3) mg/dl Magnesium (1.7-2.4) mg/dl Total Bilirubin (0.2-1.0) mg/dl AST (13-39) U/L ALT (7-52) U/L Alkaline Phosphatase (34-104) U/L Total Protein (6.0-8.3) gm/dl Albumin (3.4-5.0) gm/dl Globulin (2.5-4.0) gm/dl Albumin/Globulin Ratio (0.9-2) Procalcitonin (0-0.5) ng/ml Urine Color Yellow Urine Appearance Cloudy A (Clear) Urine pH >= 9.0 H (4.5-7.5) Ur Specific [place] 1.017 (1.000-1.030) Urine Protein 1+ H (Negative) Urine Glucose (UA) Negative (Negative) Urine Ketones 1+ H (Negative) Urine Blood Negative (Negative) Urine Nitrite Negative (Negative) Urine Bilirubin Negative (Negative) Urine Urobilinogen Negative (Negative) Ur Leukocyte Esterase 2+ H (Negative) Urine WBC (Auto) >50 H (0-5) /hpf Urine RBC (Auto) 3-5 H (0-2) /hpf U Hyaline Cast (Auto) 3-5 H (0-2) /lpf U Epithel Cells (Auto) 0-2 (0-2) /hpf Urine Bacteria (Auto) 4+ H (None Seen) Enterobacterales (PCR) DETECTED A (NotDetected) blaIMP Car res Gene PCR Not Detected (NotDetected) KPC-Carbap Res Gene PCR Not Detected (NotDetected) blaNDM Car Res Gene PCR Not Detected (NotDetected) OXA-48 Carbapenem Resis Gene (PCR) Not Detected (NotDetected) blaVIM Car Res Gene PCR Not Detected (NotDetected) CTX-M Gene Resistance (PCR) Not Detected (NotDetected) Bld Cult ID Panel PCR See PCR Comment (NotDetected) Administered Medications Discontinued Medications Cyanocobalamin (Cyanocobalamin (B-12) 500 Mcg Tablet) 1,000 mcg PO DAILY JEANNA Stop: 08/02/24 08:59 Last Admin: 07/06/24 09:16 Dose: 1,000 mcg Documented By: Admin: 07/05/24 08:05 Dose: 1,000 mcg Documented By: Admin: 07/04/24 07:54 Dose: 1,000 mcg Documented By: Admin: 07/03/24 08:45 Dose: 1,000 mcg Documented By: DLR Enoxaparin Sodium (Enoxaparin Inj 40 Mg/0.4 Ml Syr) 40 mg SQ Q24H JEANNA Stop: 08/01/24 20:59 Last Admin: 07/05/24 20:18 Dose: 40 mg Documented By: Admin: 07/04/24 20:45 Dose: 40 mg Documented By: Admin: 07/03/24 21:23 Dose: 40 mg Documented By: Admin: 07/02/24 21:00 Dose: 40 mg Documented By: CORA Sodium Chloride (Nss) 1,000 mls @ 999 mls/hr IV .Q1H1M JEANNA Stop: 07/02/24 13:45 Last Infusion: 07/02/24 14:24 Dose: Infused Documented By: Admin: 07/02/24 13:23 Dose: 999 mls/hr Documented By: SHREE Acetaminophen (Ofirmev) 1,000 mg in 100 mls @ 400 mls/hr IV NOW STA Stop: 07/02/24 12:54 Last Admin: 07/02/24 13:18 Dose: Not Given Documented By: SHREE Cefepime HCl (Maxipime 2000mg) 2,000 mg in 20 mls @ 5 mls/min IV NOW STA; Protocol Stop: 07/02/24 12:54 Last Admin: 07/02/24 13:16 Dose: 5 mls/min Documented By: SHREE Lactated Ringer's (Lr) 1,000 mls @ 999 mls/hr IV .Q1H1M ONE Stop: 07/02/24 14:53 Last Infusion: 07/02/24 15:36 Dose: Infused Documented By: Admin: 07/02/24 14:13 Dose: 999 mls/hr Documented By: CORIE Lactated Ringer's (Lr) 250 mls @ 999 mls/hr IV .Q16M ONE Stop: 07/02/24 15:15 Last Infusion: 07/02/24 18:12 Dose: Infused Documented By: Admin: 07/02/24 17:33 Dose: 999 mls/hr Documented By: PIPO Cefepime HCl (Maxipime 2000mg) 2,000 mg in 20 mls @ 5 mls/min IV Q8H JEANNA; Protocol Stop: 07/12/24 21:14 Last Admin: 07/06/24 06:07 Dose: 5 mls/min Documented By: Admin: 07/05/24 20:21 Dose: 5 mls/min Documented By: Admin: 07/05/24 13:38 Dose: 5 mls/min Documented By: Admin: 07/05/24 06:02 Dose: 5 mls/min Documented By: Admin: 07/04/24 20:47 Dose: 5 mls/min Documented By: Admin: 07/04/24 12:18 Dose: 5 mls/min Documented By: Admin: 07/04/24 06:08 Dose: 5 mls/min Documented By: Admin: 07/03/24 21:23 Dose: 5 mls/min Documented By: Admin: 07/03/24 12:37 Dose: 5 mls/min Documented By: Admin: 07/03/24 05:12 Dose: 5 mls/min Documented By: Admin: 07/02/24 20:58 Dose: 5 mls/min Documented By: CORA Lactated Ringer's (Lr) 1,000 mls @ 80 mls/hr IV .[id number] JEANNA Stop: 07/03/24 05:59 Last Infusion: 07/03/24 06:43 Dose: Infused Documented By: Admin: 07/02/24 18:13 Dose: 80 mls/hr Documented By: PIPO Magnesium Sulfate/Dextrose (Magnesium Sulfate / D5w) 1 gm in 100 mls @ 50 mls/hr IV ONE ONE Stop: 07/02/24 22:59 Last Infusion: 07/02/24 23:43 Dose: Infused Documented By: Admin: 07/02/24 20:58 Dose: 50 mls/hr Documented By: CORA Ciprofloxacin (Cipro / D5w) 400 mg in 200 mls @ 100 mls/hr IV NOW STA; Protocol Stop: 07/06/24 13:05 Last Infusion: 07/06/24 13:42 Dose: Infused Documented By: Admin: 07/06/24 11:43 Dose: 100 mls/hr Documented By: DOUGLAS Ketorolac Tromethamine (Ketorolac Tromethamine 15 Mg/Ml Vial) 10 mg IV NOW ONE Stop: 07/02/24 17:28 Last Admin: 07/02/24 17:36 Dose: 10 mg Documented By: PIPO Ketorolac Tromethamine (Ketorolac Tromethamine 15 Mg/Ml Vial) 10 mg IV Q8H PRN PRN Reason: Pain Stop: 07/07/24 22:59 Last Admin: 07/06/24 06:10 Dose: 10 mg Documented By: Admin: 07/05/24 20:21 Dose: 10 mg Documented By: Admin: 07/05/24 15:50 Dose: 10 mg Documented By: Admin: 07/04/24 20:46 Dose: 10 mg Documented By: Admin: 07/03/24 21:24 Dose: 10 mg Documented By: Admin: 07/03/24 05:13 Dose: 10 mg Documented By: CORA Lidocaine (Lidocaine 5% 1 Patch) 1 patch TD NOW STA Stop: 07/03/24 11:01 Last Admin: 07/03/24 12:37 Dose: 1 patch Documented By: ROBERT Lidocaine (Lidocaine 5% 1 Patch) 1 patch TD NOW STA Stop: 07/04/24 11:32 Last Admin: 07/04/24 12:17 Dose: 1 patch Documented By: ROBERT Lidocaine ([facility]oc[facility] 5% 1 Patch) [facility] [place]: 08/04/24 08:59 Last Admin: 07/06/24 09:16 Dose: 1 patch Documented By: Admin: 07/05/24 08:48 Dose: 1 patch Documented By: ROBERT Losartan Potassium (Losartan Potassium 25 Mg Tab) 25 mg PO [facility] Stop: 08/01/24 20:59 Last Admin: 07/02/24 21:13 Dose: Not Given Documented By: CORA Magnesium Hydroxide (Magnesium Hydroxide Susp 30 Ml Udc) 30 ml PO NOW ONE Stop: 07/05/24 15:52 Last Admin: 07/05/24 16:04 Dose: 30 ml Documented By: ROBERT Miscellaneous (Remove Lidoderm Patch) 1 each N/A DAILY@2100 [facility] Stop: 08/02/24 20:59 Last Admin: 07/05/24 20:18 Dose: 1 each Documented By: Admin: 07/04/24 20:45 Dose: 1 each Documented By: Admin: 07/03/24 21:23 Dose: 1 each Documented By: CORA Cheek (Remove Lidoderm Patch) 1 each N/A DAILY@2100 [facility] Stop: 07/04/24 21:01 Last Admin: 07/04/24 20:45 Dose: Not Given Documented By: CORA Cheek (Remove Lidoderm Patch) 1 each N/A DAILY@2100 [facility] Stop: 08/04/24 20:59 Last Admin: 07/05/24 20:18 Dose: Not Given Documented By: CORA Ondansetron HCl (Ondansetron Inj 2 Mg/Ml 2 Ml Vial) 4 mg IV Q6H PRN PRN Reason: Nausea Stop: 08/01/24 15:14 Last Admin: 07/03/24 08:45 Dose: 4 mg Documented By: ROBERT Phenazopyridine HCl (Phenazopyridine Hcl 200 Mg Tab) 200 mg PO TID PRN PRN Reason: Bladder pain Stop: 08/02/24 20:18 Last Admin: 07/06/24 15:50 Dose: 200 mg Documented By: Admin: 07/05/24 20:18 Dose: 200 mg Documented By: Admin: 07/04/24 22:38 Dose: 200 mg Documented By: Admin: 07/03/24 21:47 Dose: 200 mg Documented By: CORA Polyethylene Glycol (Polyethylene (Miralax) 17 Gm Pack) 17 gm PO DAILY JEANNA Stop: 08/03/24 08:59 Last Admin: 07/06/24 09:16 Dose: 17 gm Documented By: Admin: 07/05/24 08:05 Dose: 17 gm Documented By: Admin: 07/04/24 08:57 Dose: 17 gm Documented By: ROBERT Polyethylene Glycol (Polyethylene (Miralax) 17 Gm Pack) 17 gm PO NOW ONE Stop: 07/03/24 11:02 Last Admin: 07/03/24 12:37 Dose: 17 gm Documented By: ROBERT Rosuvastatin Calcium (Rosuvastatin Calcium 20 Mg Tab) 20 mg PO [facility] Stop: 08/01/24 20:59 Last Admin: 07/05/24 20:18 Dose: 20 mg Documented By: Admin: 07/04/24 20:45 Dose: 20 mg Documented By: Admin: 07/03/24 21:23 Dose: 20 mg Documented By: Admin: 07/02/24 21:01 Dose: 20 mg Documented By: [facility] Imaging Data Radiologist's Impression: Chest X-Ray 07/02/24 12:41 XR chest 1V portable CLINICAL HISTORY: Sepsis COMPARISON STUDY: 12/25/2023 FINDINGS: Stable mild cardiomegaly without pulmonary vascular congestion. No effusion, consolidation, or pneumothorax. IMPRESSION: No acute finding. ACT 112: Negative or not required by law. Electronically signed by: Boone Astorga M.D. 07/02/2024 1:30 PM Discharge Plan Visit Data Chief Complaint: Illness ED Provider: Michael Barrios Discharge Problem: UTI (urinary tract infection), Sepsis Patient Disposition: Admitted As Inpatient Condition: Good Discharge Instructions Interventions: ED Discharge Assessment Last Done: 07/02/24 14:52 Discharge Problem: UTI (urinary tract infection) Qualifiers: Urinary tract infection type: acute cystitis Sepsis Qualifiers: Sepsis type: sepsis due to unspecified organism Sepsis acute organ dysfunction status: without acute organ dysfunction Qualified Code(s): A41.9 - Sepsis, unspecified organism
[2024-07-02 12:38] LABS: Basophils # (auto) 0.02 K/uL (0.00-0.20); Basophils % (auto) 0.1 %; Immature Granulocytes # (auto) 0.09 K/uL (0.01-0.20); Immature Granulocytes % (auto) 0.7 %; Lymphocytes # (auto) 0.25 K/uL (1.20-3.40); Lymphocytes % (auto) 1.8 %; Monocytes # (auto) 0.32 K/uL (0.11-0.59); Monocytes % (auto) 2.3 %; Neutrophils # (auto) 13.05 K/uL (1.40-6.50); Neutrophils % (auto) 95.1 %; Polychromasia 1+; Spherocytes 1+; Tear Drop Cells 1+
--- NOTE | 2024-07-02 13:02 | History & Physical Report ---
Date of Service July 02, 2024 Assessment & Plan (1) UTI (urinary tract infection): (2) Sepsis: (3) Urinary retention: (4) Prostate cancer: Plan Mr. 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 Urosepsis on arrival. Coming in for IV antibiotics. #Urosepsis Clinically, febrile with rigors and groin pain UA positive for 4+ bacteria on arrival Leukocytosis at 13.73 with neutrophil predominance; febrile at 38.3 C + tachycardic on arrival Lactate WNL NSS 1000 mL IV + LR 1250 mL IV given to meet sepsis IVF bolus 30 cc/kg Continue IVF resuscitation with lactated Ringer's at 80 mL/hr x 1 L overnight Blood cultures drawn in the ED on 07/02 Prior UCxs on file have grown Citrobacter noting potential resistance to ceftriaxone over the course of therapy Patient was most recently on nitrofurantoin, but did not complete his course due to "anemia"; ? 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 Patient self catheterizes 3 times per day Milton placed in the ED Daily Milton catheter care #Anemia Mild; Hgb 12.5 on arrival; MCV 89.5; ?Chronic Follows with CCP Continue infusions due to low blood count, IVIG Continue B12 tablets daily Clinically, no signs of active bleeding on arrival; patient denies blood in urine Trend H&H # CAD/HLD Continue rosuvastatin, telmisartan Per most recent cardiology visit on 04/27, patient has reportedly refused aspirin in the past due to bleeding side effects #Sleep apnea CPAP HS Disposition: Admit to PCU telemetry VTE PPx: High risk due to sepsis; Lovenox 40 mg SQ q24h History of Present Illness Chief Complaint: Illness Primary Care Provider: OTONIEL Julio Mr. Olivas is a 79-year-old male with PMH of prostate cancer, urinary tension/bladder neck contracture, CAD, BCC, depression, sleep apnea, HTN, and dyslipidemia. He presented on 07/02 after developing weakness, fatigue, and rigors the day prior. Patient report he was feeling lethargic when he woke up yesterday. Then, around 1530 he began shaking "from head to toe). He took his temperature and he had a 101.2 degree fever. He slept in his chair that night, and woke up feeling okay, but then quickly developed fever/rigors again and came to the hospital. Patient did not take any Tylenol prior to coming to the hospital, but did take ibuprofen (200 mg x 2) at 7 AM this morning. He took his regular nighttime medications last night. Remote history of recurrent UTIs. He self catheterizes approximately 3x per day due to a bladder neck contracture. He also reports that he leaks throughout the day and wears pads. He was on fosfomycin at the end of April, completed a course of Augmentin prescribed on 06/09, and was recently on nitrofurantoin, but stopped taking the full course last Saturday because he was "anemic" and he was told the nitrofurantoin was causing this. Patient does not ambulate with a walker or cane at baseline; normally, he is very active and does yard work and shopping on his own. He denies smoking, tobacco use, recent alcohol use. Patient is mildly hypotensive at 99/71, tachycardic at 112 bpm, and tachypneic at 28 RPM at time of admission. ED course: Cefepime 2000 mg IV Acetaminophen 1000 mg IV NSS 1000 mL IV ROS: Patient endorses fever, chills, headache, shoulder aches, body aches, and groin pain/suprapubic tenderness. Patient denies chest pain, chest palpitations, SOB, cough, abdominal pain, flank pain, N/V/D, change in bowel habits, burning with urination, dysuria, or blood in urine. Allergies Allergy/AdvReac Type Severity Reaction Status Date / Time acetaminophen [From Tylenol] Allergy Unknown cold sweats Verified 06/15/24 08:50 cephalexin [From Keflex] Allergy Unknown Unknown Verified 07/02/24 12:52 ciprofloxacin Allergy Unknown Unknown Verified 06/15/24 08:50 Sulfa (Sulfonamide Allergy Unknown Unknown Verified 06/15/24 08:50 Antibiotics) Home Medications Medication Instructions Recorded Confirmed Type rosuvastatin 20 mg tablet 20 mg PO UD 07/26/21 07/02/24 History cyanocobalamin (vitamin B-12) 500 1,000 mcg PO DAILY 12/03/23 07/02/24 History mcg tablet telmisartan 20 mg tablet 20 mg PO DAILY #90 tabs 03/04/24 07/02/24 Rx nitroglycerin 0.4 mg sublingual 0.4 mg sublingual Q5M PRN chest 04/27/24 07/02/24 Rx tablet (Nitrostat) pain #25 tabs Past Med/Surg History Problem List (Updated 07/02/24 @ 15:59 by Marc Stoner PA-C) Sepsis UTI (urinary tract infection) Bilateral hip pain Right leg numbness Presence of bare metal stent in left circumflex coronary artery Presence of drug coated stent in LAD coronary artery Urinary retention (Acute) Bladder neck contracture Chronic rhinitis Chronic sinusitis, unspecified Constipation Chronic otitis media of right ear with perforated tympanic membrane Mixed conductive and sensorineural hearing loss of left ear with restricted hearing of right ear Erectile dysfunction Arthritis (Acute) Calculus, bladder, diverticulum (Acute) CAD (coronary artery disease) (Acute) follows w/ Kip Vikas, cardio History of basal cell carcinoma (Acute) Depression Sleep apnea CPAP Hypertension Dyslipidemia Prostate cancer (12/08/15) "STAGING: Prostate, adenocarcinoma, madalyn 3 + 4, PSA 4.95, pT2cN0, positive apical margin -Radical Prostatectomy - 01/31/2016 -Rising PSA in 03/2016, elevated to 0.147 on 12/21/2016 Lupron 22.5 mg IM February 01, 2017 Lupron 22.5 mg IM May 02, 2017, completed 6 month of androgen deprivation Status post completion of salvage radiation therapy the prostate bed May 28, 2017 received 6840 cGy" Medical History History of nephrolithotomy with removal of calculi Sleep apnea Long-term current use of intravenous immunoglobulin (IVIG) Milton catheter in place Bleeds easily Sinus infection Fatigue History of prostate cancer (~2015) History of COVID-19 (~2020) Slow to wake up after anesthesia Nausea after anesthesia Kidney stones History of skin cancer Osteoarthritis GERD (gastroesophageal reflux disease) Myocardial Infarction (~1997) Surgical History Hx of cardiac catheterization History of total bilateral knee replacement H/O prostatectomy S/P coronary artery stent placement (~1997) History of bilateral knee replacement History of left hip replacement (~03/24/19) H/O hand surgery H/O foot surgery History of lithotripsy (~06/24/20) History of cystoscopy History of esophagogastroduodenoscopy (EGD) History of colonoscopy History of herniorrhaphy History of prostatectomy (~01/31/16) History of tooth extraction History of endoscopic sinus surgery History of ear surgery Family History Father Family history of colonic polyps Hearing loss Mother Cancer Hypertension Other Family history non-contributory No family history of allergies No family history of bleeding disorder Denies family history of Ovarian cancer Prostate cancer Heart disease Myocardial infarction Breast cancer Colorectal cancer Stroke Asthma Social History Smoking Status: Former smoker Tobacco Type: Cigarettes Age Started Using Tobacco: 17; Age Quit Using Tobacco: 50; packs per day: 0.25; Cigarettes Per Day: 1/2 PPD; Second Hand Exposure: No; Do You Dip or Chew Tobacco: No; Hx Alcohol Use: Yes Alcohol type: beer Hx Substance Use: No Preferred Language: Maltese Communication Ability: Effective Visual Impairment: No Limitations Hearing Ability: Use of Hearing Aid 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: No Beliefs That Will Affect Care: None marital status: Current Living Situation: Spouse current occupational status: retired How many Children do You have: 1 Other Information That Helps Us Care for You: No Feels Safe at Home: Yes Safety Concerns: Feels Safe At This Time Childhood Exposure to Second-Hand Smoke: No Diet: regular caffeine: Yes during the past year weight has: remained stable Seatbelt Use: always Assistive Devices: Hearing Aid - Right Review of Systems Review of Systems: See HPI above Physical Exam Physical Exam: General: no acute distress; lethargic; non-toxic appearing; well-nourished; cooperative; SpO2 96% on RA HEENT: normocephalic, atraumatic; no scleral icterus; PERRLA; vision and hearing intact Neck: supple; no lymphadenopathy; trachea midline Skin: warm, dry without signs of tenting; no cyanosis; no rashes, bruising, lesions, or erythema noted CV: chest wall NTP; RR, tachycardic around 100 to 110 bpm; S1/S2 normal; no murmurs/rubs/gallops; pulses intact and symmetric at radial, DP, and PT Lungs: no acute respiratory distress; symmetrical chest wall expansion; clear breath sounds across all lung storey w/o adventitious sounds; no wheezing ABD: Soft, NTP; BS present; no rebound/guarding; no distention; left flank is mildly TTP : Positive suprapubic tenderness; Milton in place draining dark yellow urine into Milton bag; negative CVA tenderness MSK: no tics or fasciculations; no edema noted in the LEs b/l, nonerythematous Neuro: A&Ox3; normal mood and affect; fluent speech; no focal deficits; sensat ion intact and symmetric lower extremities bilaterally Results & Data Results & Data Vital Signs (Past 12 Hours) Vital Signs Temp Pulse Resp BP Pulse Ox O2 Del Method 07/02/24 11:59 104 H 07/02/24 11:34 37.2 C 107 H 20 116/64 98 Room Air Laboratory Results Abnormal lab results 07/02/24 Range/Units 11:43 WBC 13.73 H (4.8-10.8) K/ul RBC 4.20 L (4.70-6.10) M/uL Hgb 12.5 L (14.0-18.0) g/dl Hct 37.6 L (42.0-52.0) % MPV 8.9 L (9.4-12.4) fL Neut # (Auto) 13.05 H (1.40-6.50) K/uL Lymph # (Auto) 0.25 L (1.20-3.40) K/uL Sodium 133 L (136-145) mmol/L BUN/Creatinine Ratio 28.8 H (10-20) Glucose 105 H (70-99(Fasting)) mg/dl Globulin 4.1 H (2.5-4.0) gm/dl ECG Additional Comments: ECG ordered, pending Code Status & VTE Plan Code Status Full code VTE Prophylaxis Plan VTE Prophylaxis will be ordered: Yes Supervising Physician Co-Signing Physician Notes Patient seen and examined, chart reviewed, case discussed with Marc Stoner PA-C and I agree with the assessment and plan as above except as otherwise noted Labs and images reviewed 79-year-old male with a past medical history of prostate cancer, bladder neck contracture, CAD, depression, LAURENCE, hyperlipidemia, hypertension who presented with weakness/fatigue/rigors. On ER evaluation was tachycardic and with BP 116/64. Patient has been febrile and with rigors. He has a leukocytosis and infected appearing UA. Suspected to have urosepsis. IBW/AB W sepsis recommendations 2263/2814 cc. Patient has been ordered 2250 cc of crystalloid infusion to meet sepsis requirements. Blood cultures pending. Urine culture pending. Cefepime continued for treatment. Nontoxic-appearing bedside. Ports he still feels tired but slightly improved from fluids. Still having reduced urine output. Has suprapubic tenderness radiation to the scrotum. Endorses feeling feverish and with shaking chills earlier, these have not recurred in the last hour or so. He is hungry and would like a meal tray, and is hopeful that the UC will show exactly what is causing his infection so that he can get better. At bedside assessment lungs are diminished but clear, has suprapubic tenderness to palpation. No other abdominal tenderness and no rebound/guarding. Agree with above PG Care Time/CCT Total # of Minutes Spent Total Time Spent with Patient: Total time spent is greater than 50% in coordination of care (as documented) at patient's floor/unit and/or counseling patient: Coding [place] [address] INT INP/OBS CARE 3/75MIN Patient Type Established History Comprehensive Exam Comprehensive Medical Decision Making High Complexity Diagnoses UTI (urinary tract infection) N39.0 Sepsis A41.9 Urinary retention R33.9 Prostate cancer C61
[2024-07-02] MEDS: CEFEPIME 2000MG 2,000 MG/20 ML SYR IV STA (13:16)
[2024-07-02] MEDS: ACETAMINOPHEN 1,000 MG/100 ML VIAL IV STA (13:18)
[2024-07-02] MEDS: SODIUM CHLORIDE 0.9% 1,000 ML IV SCH (13:23)
[2024-07-02 13:26] LABS: Magnesium 1.6 mg/dl (1.7-2.4)
[2024-07-02 13:31] LABS: Appearance Urine Cloudy (Clear); Bacteria Urine Automated 4+ (None Seen); Bilirubin Urine Negative (Negative); Blood Urine Negative (Negative); Color Urine Yellow; Epithelial Cell Urine Auto 0-2 /hpf (0-2); Glucose Urine UA Negative (Negative); Ketones Urine 1+ (Negative); Leukocyte Esterase Urine 2+ (Negative); Nitrite Urine Negative (Negative); Protein Urine 1+ (Negative); Specific Gravity Urine 1.017 (1.000-1.030); Urobilinogen Urine Negative (Negative); WBC Urine Automated >50 /hpf (0-5); pH Urine >= 9.0 (4.5-7.5)
--- NOTE | 2024-07-02 13:31 | XRay Report ---
XR chest 1V portable CLINICAL HISTORY: Sepsis COMPARISON STUDY: 12/25/2023 FINDINGS: Stable mild cardiomegaly without pulmonary vascular congestion. No effusion, consolidation, or pneumothorax. IMPRESSION: No acute finding. ACT 112: Negative or not required by law. Electronically signed by: Boone Astorga M.D. 07/02/2024 1:30 PM
[2024-07-02] MEDS: LACTATED RINGER'S 1,000 ML IV ONE (14:13)
[2024-07-02] MEDS ORDERED: ACETAMINOPHEN 325 MG TAB PO PRN (15:15)
[2024-07-02] MEDS: LACTATED RINGER'S 250 ML IV ONE (17:33)
[2024-07-02] MEDS: KETOROLAC TROMETHAMINE 15 MG/ML VIAL IV ONE (17:36)
[2024-07-02] MEDS: LACTATED RINGER'S 1,000 ML IV SCH (18:13)
--- NOTE | 2024-07-02 19:14 | CT Scan Report ---
Clinical History: Left flank pain Technique: Axial computed tomography images were obtained of the abdomen and pelvis without intravenous contrast. Comparison is made to the prior CT dated 02/28/2024 Findings: The liver is overall of normal size, attenuation, and contour with no sign of cirrhosis or significant fatty infiltration. No definite liver mass lesion is seen on this noncontrast study. The gallbladder appears unremarkable. No bile duct dilatation is noted. The spleen is of normal size. No focal splenic lesion is evident. The pancreas appears normal with no sign of acute or chronic pancreatitis and no mass lesion noted. The pancreatic duct is of normal caliber. The adrenal glands appear unremarkable. There are bilateral renal calculi, measuring up to 6 mm in size. There is no hydronephrosis or perinephric stranding. No definite renal mass lesion is identified. There are bilateral renal peripelvic cysts. The aorta is of normal caliber. No abdominal adenopathy is seen. There is a small hiatal hernia. There is no sign of small bowel obstruction. There is diverticulosis without definite diverticulitis. There is no sign of appendicitis. No free intraperitoneal fluid or air is identified. No distal ureteral or bladder calculi are seen. The bladder is decompressed, containing a Milton catheter. The iliac arteries are of normal caliber. No pelvic adenopathy is noted. There is a small right inguinal hernia containing only fat. The prostate appears to have been removed. There is subsegmental atelectasis in both lower lobes. There is extensive coronary atherosclerosis There has been near complete resolution of the previously seen hematoma in the left lateral abdominal wall subcutaneous fat Lumbar scoliosis and degenerative disc disease is seen. No fracture is identified. No focal osseous lesion is seen. There is a left hip total arthroplasty, resulting in surrounding artifact. Impression: 1. Bilateral renal calculi and bilateral renal peripelvic cysts 2. Diverticulosis without definite diverticulitis 3. Near complete resolution of the previously seen abdominal wall hematoma 4. Small hiatal hernia 5. Mild lung base atelectasis 6. Extensive coronary atherosclerosis 7. Right inguinal hernia containing only fat ACT 112: Positive. There are findings on this exam that require communication between the performing entity and the patient following Patient Test Result Information Act ([place] ACT 112) guidelines. Electronically signed by Rivera Dick 07-02-2024 7:13 PM
[2024-07-02] MEDS: MAGNESIUM SULFATE / D5W 1 GM/100 ML BAG IV ONE (20:58)
[2024-07-02] MEDS: CEFEPIME 2000MG 2,000 MG/20 ML SYR IV SCH (20:58)
[2024-07-02] MEDS: ENOXAPARIN INJ 40 MG/0.4 ML SYR SQ SCH (21:00)
[2024-07-02] MEDS: ROSUVASTATIN CALCIUM 20 MG TAB PO SCH (21:01)
[2024-07-02] MEDS: LOSARTAN POTASSIUM 25 MG TAB PO SCH (21:13)
[2024-07-02] MEDS ORDERED: KETOROLAC TROMETHAMINE 15 MG/ML VIAL IV PRN (23:00)
--- NOTE | 2024-07-02 23:01 | Electrocardiogram Report ---
Test Reason : Blood Pressure : */* mmHG Vent. Rate : 110 BPM Atrial Rate : 110 BPM P-R Int : 180 ms QRS Dur : 130 ms QT Int : 350 ms P-R-T Axes : 21 -14 3 degrees QTcB Int : 473 ms Sinus tachycardia Right bundle branch block Minimal voltage criteria for LVH, may be normal variant ( R in aVL ) Abnormal ECG When compared with ECG of 25-Dec-2023 10:02, Premature supraventricular complexes are no longer Present Confirmed by Yusuf Escobar ([id number]) on 07/02/2024 11:01:18 PM Referred By: REFERRED SELF Confirmed By: Yusuf Escobar
[2024-07-03 01:56] LABS: A calco-baum cmplx NotReported Not Detected (NotDetected); Bact fragilis Not Reported Not Detected (NotDetected); Blood Culture Id Panel See PCR Comment (NotDetected); C auris Not Reported Not Detected (NotDetected); CTX-M Resistant Gene Not Detected (NotDetected); Calbicans Not Reported Not Detected (NotDetected); Candida glabrata Not Reported Not Detected (NotDetected); Candida krusei Not Reported Not Detected (NotDetected); Cneoformans/gatti Not Reported Not Detected (NotDetected); Cparapsilosis Not Reported Not Detected (NotDetected); Ctropicalis Not Reported Not Detected (NotDetected); E cloacae compx Not Reported Not Detected (NotDetected); Efaecalis Not Reported Not Detected (NotDetected); Efaecium Not Reported Not Detected (NotDetected); Enterobacterales Not Reported DETECTED (NotDetected); Escherichia coli Not Reported Not Detected (NotDetected); H influenzae Not Reported Not Detected (NotDetected); IMP Resistant Gene Not Detected (NotDetected); K aerogenes Not Reported Not Detected (NotDetected); KPC Resistant Gene Not Detected (NotDetected); Koxytoca Not Reported Not Detected (NotDetected); Kpneumoniae grp Not Reported Not Detected (NotDetected); Lmonocyt Not Reported Not Detected (NotDetected); N meningitidis Not Reported Not Detected (NotDetected); NDM Resistant Gene Not Detected (NotDetected); OXA 48 Like Resistant Gene Not Detected (NotDetected); P aeruginosa Not Reported Not Detected (NotDetected); Proteus spp Not Reported Not Detected (NotDetected); Salmonella spp Not Reported Not Detected (NotDetected); Staph lugdunensis Not Reported Not Detected (NotDetected); Staph spp. Not Reported Not Detected (NotDetected); Staphaureus Not Reported Not Detected (NotDetected); Staphepi Not Reported Not Detected (NotDetected); Stenmaltophilia Not Reported Not Detected (NotDetected); Strep agal(GrpB) Not Reported Not Detected (NotDetected); Strep pneum Not Reported Not Detected (NotDetected); Strep pyog (GrpA) Not Reported Not Detected (NotDetected); Strep spp Not Reported Not Detected (NotDetected); VIM Resistant Gene Not Detected (NotDetected)
[2024-07-03 02:05] LABS: Enterobacterales DETECTED (NotDetected)
[2024-07-03] MEDS: KETOROLAC TROMETHAMINE 15 MG/ML VIAL IV PRN (05:13)
[2024-07-03 06:38] LABS: Hematocrit (blood only) 29.5 % (42.0-52.0); Hemoglobin 9.7 g/dl (14.0-18.0); Mean Corpuscular Hemoglobin 29.8 pg (25.0-34.0); Mean Corpuscular Hgb Conc 32.9 g/dL (32.0-36.0); Mean Corpuscular Volume 90.8 fL (80.0-100.0); Mean Platelet Volume 9.4 fL (9.4-12.4); Platelet Count 178 K/uL (130-400); RDW Coefficient of Variation 13.5 % (11.5-14.5); RDW Standard Deviation 45.5 fL (36.4-46.3); Red Blood Count 3.25 M/uL (4.70-6.10); White Blood Count 8.86 K/ul (4.8-10.8)
[2024-07-03 07:00] LABS: BUN Creatinine Ratio 27.5 (10-20); Creatinine Clr Calc Pharmacy 88.6 ml/min; Magnesium 1.8 mg/dl (1.7-2.4); Potassium 3.8 mmol/L (3.5-5.1)
[2024-07-03 07:22] LABS: Basophils # (auto) 0.02 K/uL (0.00-0.20); Basophils % (auto) 0.2 %; Immature Granulocytes # (auto) 0.04 K/uL (0.01-0.20); Immature Granulocytes % (auto) 0.5 %; Lymphocytes # (auto) 0.24 K/uL (1.20-3.40); Lymphocytes % (auto) 2.7 %; Monocytes # (auto) 0.57 K/uL (0.11-0.59); Monocytes % (auto) 6.4 %; Neutrophils # (auto) 7.99 K/uL (1.40-6.50); Neutrophils % (auto) 90.2 %
--- NOTE | 2024-07-03 07:54 | Hospitalist Progress Note ---
Date of Service July 03, 2024 Assessment & Plan (1) UTI (urinary tract infection): (2) Sepsis: (3) Urinary retention: (4) Prostate cancer: (5) Anemia: Plan Mr. 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 Urosepsis on arrival. Coming in for IV antibiotics. # Sepsis with urinary source Clinically, febrile with rigors and groin pain UA positive for 4+ bacteria on arrival Febrile at 38.3 C + tachycardic on arrival WBC count trend 13.73 -> 8.86 (improving) Lactate WNL NSS 1000 mL IV + LR 1250 mL IV given to meet sepsis IVF bolus 30 cc/kg Blood cultures drawn in the ED on 07/02 Prior UCxs on file have grown Citrobacter noting potential resistance to ceftriaxone over the course of therapy Patient was most recently on nitrofurantoin, but did not complete his course due to "anemia"; ? taking for Enterococcus Cefepime 2000 mg IV q8h Follow current UCx; repeat UCx ordered on 07/03 Patient declining acetaminophen for fever Ice packs PRN Toradol 10 mg IV PRN q6h for pain; renal function remains okay Lidocaine patch application to right hip daily A/P CT did not reveal obstructive pathology or pyelonephritis; near complete resolution of abdominal wall hematoma Preliminary UCx growing Citrobacter on 07/03, no sensitivities yet #Prostate cancer Severe bladder neck 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 Patient self catheterizes 3 times per day Milton placed in the ED Daily Milton catheter care #Episodes of hypotension Hold losartan #Anemia Hgb trend 12.5 -> 9.7 Clinically, patient denies falls, trauma, or blood in the urine or stool Suspect volume dilution secondary to sepsis IVF bolus administered the evening prior Chronic anemia; follows with CCP Continue infusions due to low blood count, IVIG Continue B12 tablets daily Clinically, no signs of active bleeding on exam Trend H&H # CAD/HLD Continue rosuvastatin, telmisartan Per most recent cardiology visit on 04/27, patient has reportedly refused aspirin in the past due to bleeding side effects #Sleep apnea CPAP HS #Constipation MiraLAX daily Disposition: Admit to PCU telemetry VTE PPx: High risk due to sepsis; continue Lovenox 40 mg SQ q24h Admission and Anticipated Discharge Date Admission Date: July 02, 2024 Supervising Physician Co-Signing Physician Notes chart reviewed, case d/w P Herbie PAC. as above Subjective Mr. Olivas reports he is feeling similar to yesterday. He is still experiencing fevers, chills, rigors, and having pain in his groin region/right hip. He feels that the pain in his right hip is due to prior surgery, and is requesting additional pain medicine at this time. He does report that the Toradol has helped over the past 24 hours. However, coughing, and sitting up exacerbates his groin pain. Patient reports his last full bowel movement was on Saturday, and he did have a small one yesterday on . ROS: Patient endorses fever, chills, nausea, body aches, right hip pain, and groin pain. Patient denies chest pain, chest palpitations, SOB, pleuritic CP, cough, upper abdominal pain, nausea, vomiting, diarrhea, or burning urination. Review of Systems Review of Systems: See HPI above Physical Exam Physical Exam: General: no acute distress; non-toxic appearing; well-nourished; cooperative; SpO2 94% on RA HEENT: normocephalic, atraumatic; no scleral icterus; PERRLA; vision and hearing intact Neck: supple; no lymphadenopathy; trachea midline Skin: Not diaphoretic; warm, dry without signs of tenting; no cyanosis; no rashes, bruising, lesions, or erythema noted CV: chest wall NTP; RRR; S1/S2 normal; no murmurs/rubs/gallops; pulses intact and symmetric at radial, DP, and PT Lungs: no acute respiratory distress; symmetrical chest wall expansion; clear breath sounds across all lung storey w/o adventitious sounds; no wheezing ABD: Soft, NTP; BS present; no rebound/guarding; no distention; left flank is mildly TTP when compared to the right; quite mild TTP : Positive suprapubic tenderness; Milton in place draining dark orange urine into Milton bag MSK: no tics or fasciculations; no edema noted in the LEs b/l, nonerythematous Neuro: A&Ox3; normal mood and affect; fluent speech; no focal deficits; sensation intact and symmetric lower extremities bilaterally Results & Data Results & Data Vital Signs (Past 12 Hours) Vital Signs Temp Pulse Pulse Resp BP Pulse Ox O2 Del Method 07/03/24 07:43 38.5 C H 119 H 22 158/61 H 93 Room Air 07/03/24 04:10 26 H 07/03/24 03:16 37.7 C H 72 20 90/44 L 92 CPAP 07/03/24 02:26 CPAP 07/02/24 23:04 38.1 C H 85 23 98/58 L 94 CPAP 07/02/24 22:31 85 18 93 07/02/24 22:05 87 FiO2 07/03/24 07:43 07/03/24 04:10 21 07/03/24 03:16 07/03/24 02:26 07/02/24 23:04 07/02/24 22:31 21 07/02/24 22:05 PG Care Time/CCT Total # of Minutes Spent Total Time Spent with Patient: Total time spent is greater than 50% in coordination of care (as documented) at patient's floor/unit and/or counseling patient: Coding [place] [address] SUB INP/OBS CARE 3/50MIN Patient Type Established Medical Decision Making High Complexity Diagnoses UTI (urinary tract infection) N39.0 Sepsis A41.9 Urinary retention R33.9 Prostate cancer C61 Anemia D64.9
[2024-07-03] MEDS: CYANOCOBALAMIN (B-12) 500 MCG TABLET PO SCH (08:45)
[2024-07-03] MEDS: ONDANSETRON INJ 2 MG/ML 2 ML VIAL IV PRN (08:45)
[2024-07-03] MEDS: POLYETHYLENE (MIRALAX) 17 GM PACK PO ONE (12:37)
[2024-07-03] MEDS: LIDOCAINE 5% 1 PATCH TD STA (12:37)
[2024-07-03 17:31] LABS: Appearance Urine Cloudy (Clear); Bacteria Urine Automated 3+ (None Seen); Bilirubin Urine Negative (Negative); Blood Urine 2+ (Negative); Color Urine Yellow; Epithelial Cell Urine Auto 0-2 /hpf (0-2); Glucose Urine UA Negative (Negative); Ketones Urine Negative (Negative); Leukocyte Esterase Urine 3+ (Negative); Nitrite Urine Negative (Negative); Protein Urine 1+ (Negative); Specific Gravity Urine 1.011 (1.000-1.030); Urobilinogen Urine Negative (Negative); WBC Urine Automated >50 /hpf (0-5)
[2024-07-03] MEDS: PHENAZOPYRIDINE HCL 200 MG TAB PO PRN (21:47)
[2024-07-04 07:09] LABS: Basophils # (auto) 0.01 K/uL (0.00-0.20); Basophils % (auto) 0.1 %; Hematocrit (blood only) 31.5 % (42.0-52.0); Hemoglobin 10.3 g/dl (14.0-18.0); Immature Granulocytes # (auto) 0.04 K/uL (0.01-0.20); Immature Granulocytes % (auto) 0.6 %; Lymphocytes # (auto) 0.36 K/uL (1.20-3.40); Lymphocytes % (auto) 5.3 %; Mean Corpuscular Hemoglobin 29.7 pg (25.0-34.0); Mean Corpuscular Hgb Conc 32.7 g/dL (32.0-36.0); Mean Corpuscular Volume 90.8 fL (80.0-100.0); Mean Platelet Volume 9.5 fL (9.4-12.4); Monocytes # (auto) 0.85 K/uL (0.11-0.59); Monocytes % (auto) 12.6 %; Neutrophils # (auto) 5.51 K/uL (1.40-6.50); Neutrophils % (auto) 81.4 %; Platelet Count 158 K/uL (130-400); RDW Coefficient of Variation 13.5 % (11.5-14.5); RDW Standard Deviation 44.4 fL (36.4-46.3); Red Blood Count 3.47 M/uL (4.70-6.10); White Blood Count 6.77 K/ul (4.8-10.8)
[2024-07-04 07:31] LABS: BUN Creatinine Ratio 25.3 (10-20); Calcium 8.5 mg/dl (8.6-10.3); Potassium 4.1 mmol/L (3.5-5.1)
[2024-07-04] MEDS: POLYETHYLENE (MIRALAX) 17 GM PACK PO SCH (08:57)
[2024-07-04] MEDS: LIDOCAINE 5% 1 PATCH TD STA (12:17)
--- NOTE | 2024-07-04 12:42 | Hospitalist Progress Note ---
Date of Service July 04, 2024 Assessment & Plan (1) UTI (urinary tract infection): (2) Sepsis: (3) Urinary retention: (4) Prostate cancer: (5) Anemia: Plan Mr. Olivas is a 79-year-old gentleman who presented on 07/02 after developing fever/rigors/body aches the evening [employer]. 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 Urosepsis on arrival. Coming in for IV antibiotics. # Sepsis with urinary source UA positive for 4+ bacteria on arrival Febrile at 38.3 C + tachycardic on arrival WBC count trend 13.73 -> 8.86 -> 6.77 (improving) Lactate WNL NSS 1000 mL IV + LR 1250 mL IV given to meet sepsis IVF bolus 30 cc/kg Blood cultures drawn in the ED on 07/02 Cefepime 2000 mg IV q8h Patient declining acetaminophen for fever Ice packs PRN Toradol 10 mg IV PRN q6h for pain; renal function remains okay Lidocaine patch application to right hip daily A/P CT did not reveal obstructive pathology or pyelonephritis; near complete resolution of abdominal wall hematoma Final UCx on 07/04 growing Citrobacter freundii complex Resistant to gentamicin and Bactrim; intermediate resistance to cefotaxime; susceptible to cefepime and FQs #Prostate cancer Severe bladder neck 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 Patient self catheterizes 3 times per day Milton placed in the ED Daily Milton catheter care #Episodes of hypotension Hold losartan #Anemia Hgb trend 12.5 -> 9.7 -> 10.3 Clinically, patient denies falls, trauma, or blood in the urine or stool Suspect volume dilution secondary to sepsis IVF bolus administered the evening prior Chronic anemia; follows with CCP Due for next IVIG infusion on Friday 07/07 Continue B12 tablets daily Clinically, no signs of active bleeding on exam Trend H&H # CAD/HLD Continue rosuvastatin, telmisartan Per most recent cardiology visit on 04/27, patient has reportedly refused aspirin in the past due to bleeding side effects #Sleep apnea CPAP HS #Constipation MiraLAX daily Disposition: Continued stay on PCU telemetry VTE PPx: High risk due to sepsis; continue Lovenox 40 mg SQ q24h Admission and Anticipated Discharge Date Admission Date: July 02, 2024 Supervising Physician Co-Signing Physician Notes chart reviewed, case d/w Anibal QUIROGA. as above Subjective Mr. Olivas reports he is feeling much better when compared to the last 2 days. He finally had a good night sleep, and was able to ambulate with occupational therapy this morning, which he reports felt good. He is drinking plenty of fluids, and fully completed his last 3 meals. No recurrence of fever/chills overnight, and his body aches have largely subsided. He reports he is "not as sore" as before. The lidocaine patch applied to his right hip helped significantly yesterday. Overall, patient does feel better, but is amenable to staying. He lives in a 1 floor house, and does have significant support at home; his son lives down the road, and his sister (who is an RN) lives across the street. Patient also expresses concern about an upcoming appointment scheduled for IVIG on Friday 07/07. He is wondering if he would be able to have it done here, if continued hospitalization. ROS: Patient endorses ongoing cough, and groin pain/suprapubic tenderness with movements and raising legs. Patient denies fever, chills, night sweats, body aches, dizziness/lightheadedness with movements, chest pain, chest palpitations, SOB, abdominal pain, N/V/D, saddle anesthesia or numbness or tingling in the arms or legs. Review of Systems Review of Systems: See HPI above Physical Exam Physical Exam: General: no acute distress; resting peacefully in bed; non-toxic appearing; well-nourished; cooperative; SpO2 96% on RA HEENT: normocephalic, atraumatic; no scleral icterus; PERRLA; vision and hearing intact Neck: supple; no lymphadenopathy; trachea midline Skin: Not diaphoretic; warm, dry without signs of tenting; no cyanosis; no rashes, bruising, lesions, or erythema noted CV: chest wall NTP; RRR; S1/S2 normal; no murmurs/rubs/gallops; pulses intact and symmetric at radial, DP, and PT Lungs: no acute respiratory distress; symmetrical chest wall expansion; clear breath sounds across all lung storey w/o adventitious sounds; no wheezing ABD: Soft, NTP; BS present; no rebound/guarding; no distention : Positive suprapubic tenderness; Milton in place draining dark yellow urine into Milton bag MSK: no tics or fasciculations; no edema noted in the LEs b/l, nonerythematous Neuro: A&Ox3; normal mood and affect; fluent speech; no focal deficits; sensation intact and symmetric lower extremities bilaterally Results & Data Results & Data Vital Signs (Past 12 Hours) Vital Signs Temp Pulse Pulse Resp BP Pulse Ox O2 Del Method 07/04/24 08:38 36.6 C 60 20 99/69 L 96 CPAP 07/04/24 08:22 52 L 07/04/24 03:58 58 L 18 96 07/04/24 03:19 36.5 C 57 L 18 109/64 98 CPAP 07/04/24 02:14 Room Air, CPAP FiO2 07/04/24 08:38 07/04/24 08:22 07/04/24 03:58 21 07/04/24 03:19 07/04/24 02:14 PG Care Time/CCT Total # of Minutes Spent Total Time Spent with Patient: Total time spent is greater than 50% in coordination of care (as documented) at patient's floor/unit and/or counseling patient: C[place] [address] SUB INP/OBS CARE 3/50MIN Patient Type Established Medical Decision Making High Complexity Diagnoses UTI (urinary tract infection) N39.0 Sepsis A41.9 Urinary retention R33.9 Prostate cancer C61 Anemia D64.9
[2024-07-05] MEDS: LIDOCAINE 5% 1 PATCH TD SCH (08:48)
[2024-07-05 09:47] LABS: Basophils # (auto) 0.01 K/uL (0.00-0.20); Basophils % (auto) 0.1 %; Eosinophils # (auto) 0.02 K/uL (0.00-0.50); Eosinophils % (auto) 0.2 %; Hematocrit (blood only) 37.2 % (42.0-52.0); Hemoglobin 12.1 g/dl (14.0-18.0); Immature Granulocytes # (auto) 0.05 K/uL (0.01-0.20); Immature Granulocytes % (auto) 0.6 %; Lymphocytes # (auto) 0.42 K/uL (1.20-3.40); Lymphocytes % (auto) 5.2 %; Mean Corpuscular Hemoglobin 29.4 pg (25.0-34.0); Mean Corpuscular Hgb Conc 32.5 g/dL (32.0-36.0); Mean Corpuscular Volume 90.3 fL (80.0-100.0); Mean Platelet Volume 9.5 fL (9.4-12.4); Monocytes # (auto) 0.54 K/uL (0.11-0.59); Monocytes % (auto) 6.7 %; Neutrophils # (auto) 7.06 K/uL (1.40-6.50); Neutrophils % (auto) 87.2 %; Platelet Count 214 K/uL (130-400); RDW Coefficient of Variation 13.2 % (11.5-14.5); RDW Standard Deviation 43.7 fL (36.4-46.3); Red Blood Count 4.12 M/uL (4.70-6.10)
[2024-07-05 10:01] LABS: BUN Creatinine Ratio 27.1 (10-20); Calcium 8.9 mg/dl (8.6-10.3); Creatinine Clr Calc Pharmacy 82.5 ml/min
--- NOTE | 2024-07-05 15:51 | Hospitalist Progress Note ---
Date of Service July 05, 2024 Assessment & Plan (1) UTI (urinary tract infection): (2) Sepsis: (3) Urinary retention: (4) Prostate cancer: (5) Anemia: Plan Mr. Olivas is a 79-year-old gentleman who presented on 07/02 after developing fever/rigors/body aches the evening [employer]. 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 Sepsis secondary to UTI on arrival. Coming in for IV antibiotics. # Sepsis with urinary source UA positive for 4+ bacteria on arrival Febrile at 38.3 C + tachycardic on arrival (resolved) Leukocytosis at 13.73 on arrival (down trended; resolved) Lactate WNL NSS 1000 mL IV + LR 1250 mL IV given to meet sepsis IVF bolus 30 cc/kg Blood cultures drawn in the ED on 07/02 Cefepime 2000 mg IV q8h Patient declining acetaminophen for fever Ice packs PRN Toradol 10 mg IV PRN q6h for pain; renal function remains okay Lidocaine patch application to right hip daily A/P CT did not reveal obstructive pathology or pyelonephritis; near complete resolution of abdominal wall hematoma PT/OT evaluations appreciated; per initial evals, likely safe to discharge home with family support once medically stable Final UCx on 07/04 growing Citrobacter freundii complex Resistant to gentamicin and Bactrim; intermediate resistance to cefotaxime; susceptible to cefepime and FQs #Prostate cancer Severe bladder neck 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 Patient self catheterizes 3 times per day Milton placed in the ED Daily Milton catheter care #Episodes of hypotension Hold losartan #Anemia | MGUS Hgb trend 12.5 -> 9.7 -> 10.3 -> 12.1 (suspected due to volume dilution from sepsis IVF bolus) Clinically, patient denies falls, trauma, or blood in the urine or stool Chronic anemia/MGUS; follows with CCP Due for next IVIG infusion on Friday 07/07 Continue B12 tablets daily Trend H&H # CAD/HLD Continue rosuvastatin, telmisartan Per most recent cardiology visit on 04/27, patient has reportedly refused aspirin in the past due to bleeding side effects #Sleep apnea CPAP HS #Constipation MiraLAX daily Milk of magnesia PRN Disposition: Continued stay on PCU telemetry, with hopeful discharge on 07/06 Discussed discharge plan with both patient and patient's family on 07/05. The plan will be for patient to return home on 07/06 on oral antibiotics (ciprofloxacin). Patient denies any history of aortic aneurysms, vascular issues, or tendinopathy. Overall, he reports is feeling much better in regard to an infection standpoint, but is still feeling weak from a deconditioning standpoint. Encourage patient to ambulate in the room, and gradually increase activity as tolerated. Patient will plan to keep [facility] (which his son can bring him to). Patient does have a good support system at home; lives with his ; son reports that he will be driving from his house in [place] to stay with the patient for the remainder of the week starting on Friday 07/07. VTE PPx: High risk due to sepsis; continue Lovenox 40 mg SQ q24h while inpatient Admission and Anticipated Discharge Date Admission Date: July 02, 2024 Supervising Physician Co-Signing Physician Notes chart reviewed, case d/w P Herbie QUIROGA. as above Subjective Mr. Olivas reports he feels very well today, except for lingering groin/suprapubic pain and tenderness. He had a good night sleep. No recurrence of fever or chills overnight. He has been eating breakfast, and ambulating out of bed independently. However, he reports he is still painful in the groin region when he walks. He is still experiencing a lot of "generalized weakness" and believes he is too weak to go home today, but feels he might be strong enough by tomorrow if he gets up and walks today. Additionally, he reports no bowel movements since being in the hospital, and reports that the constipation is uncomfortable. He reports that Milk of Magnesia usually works for him at home. ROS: Patient endorses right hip pain, constipation, ongoing cough, and groin pain/suprapubic tenderness with walking. Patient denies fever, chills, night sweats, body aches, dizziness/lightheadedness with movements, chest pain, chest palpitations, SOB, abdominal pain, N/V/D, saddle anesthesia or numbness or tingling in the arms or legs. Addendum at 1300: Updated both patient and patient's family at bedside regarding ongoing treatment and plan for discharge. The patient's urinary tract infection has largely resolved, and clinically the patient reports he has been doing very well over the past 24 hours. Patient and patient's family are in agreement that plan will be for patient to return home likely tomorrow 07/06. Did provide the option for either ciprofloxacin (p.o. medication) to be taken upon discharge versus meropenem IV (which would require MTU). Patient is in favor of p.o. medications at this time. Provided counseling on self-catheterization at home and early warning signs to look out for UTIs (such as lower back pain, suprapubic tenderness/groin pain, dark-colored urine, or malodorous urine). Provided information regarding transitional care with PCP, and planned urology follow-up. Review of Systems Review of Systems: See HPI above Physical Exam Physical Exam: General: no acute distress; pleasant affect; resting peacefully in his chair this morning; non-toxic appearing; well-nourished; cooperative; SpO2 95% on RA HEENT: normocephalic, atraumatic; no scleral icterus; PERRLA; vision and hearing intact Neck: supple; no lymphadenopathy; trachea midline Skin: Not diaphoretic; warm, dry without signs of tenting; no cyanosis; no rashes, bruising, lesions, or erythema noted CV: chest wall NTP; RRR; S1/S2 normal; no murmurs/rubs/gallops; pulses intact and symmetric at radial, DP, and PT Lungs: no acute respiratory distress; symmetrical chest wall expansion; clear breath sounds across all lung storey w/o adventitious sounds; no wheezing ABD: Soft, NTP; BS present; no rebound/guarding; no distention : Positive suprapubic tenderness; Milton in place draining clear yellow urine into Milton bag MSK: no tics or fasciculations; no edema noted in the LEs b/l, nonerythematous Neuro: A&Ox3; normal mood and affect; fluent speech; no focal deficits; sensation intact and symmetric lower extremities bilaterally Gait: Patient demonstrates ability to ambulate across his room and back without postural sway or balance issues Results & Data Results & Data Vital Signs (Past 12 Hours) Vital Signs Temp Pulse Pulse Resp BP Pulse Ox O2 Del Method 05/11/25 14:25 80 07/05/24 12:36 36.8 C 79 16 125/60 95 Room Air 07/05/24 10:32 66 07/05/24 07:58 36.7 C 60 18 119/59 L 96 Room Air PG Care Time/CCT Total # of Minutes Spent Total Time Spent with Patient: Total time spent is greater than 50% in coordination of care (as documented) at patient's floor/unit and/or counseling patient: Coding [place] [address] SUB INP/OBS CARE 3/50MIN Patient Type Established Medical Decision Making High Complexity Diagnoses UTI (urinary tract infection) N39.0 Sepsis A41.9 Urinary retention R33.9 Prostate cancer C61 Anemia D64.9
[2024-07-05] MEDS: MAGNESIUM HYDROXIDE SUSP 30 ML UDC PO ONE (16:04)
--- NOTE | 2024-07-06 08:24 | Discharge Summary ---
Discharge Summary Date of Service July 06, 2024 Principal Dx & Hospital Course #1 = Principal Diagnosis (1) UTI (urinary tract infection): (2) Sepsis: (3) Urinary retention: (4) Prostate cancer: (5) Anemia: Plan Mr. 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 Sepsis secondary to UTI on arrival. To do as outpatient: Complete 10-day course of antibiotics with 6 days of cipro 750mg BID for Citrobacter bacteremia. No history of aneurysms, QTc less than 480. - Pt had an unclear historical allergy to cipro, patient reported he does not remember exactly but suspected ?GI upset. On shared decisionmaking rather than pursue IV tx, trialed with observed cipro dose while inpatient and was observed 4 hours. No allergy was observed, and again he reported he had no history of any allergic reaction involving wheezing lip or tongue swelling. Cipro was removed from his allergy list, if he develops any signs of allergy including rash, itching, wheezing, hives he will take 50 mg of Benadryl and seek immediate ER evaluation. Follow-up with PCP as outpatient Follow-up with urology as outpatient. Voiding trial versus indwelling Milton was discussed with the patient, has a history of recurrent urinary retention r equiring self cath with recent worsening, preferred to leave Milton in with outpatient urology follow-up at discharge. # Sepsis with urinary source UA positive for 4+ bacteria on arrival Febrile at 38.3 C + tachycardic on arrival (resolved) Leukocytosis at 13.73 on arrival (down trended; resolved) Lactate WNL During admission was treated with cefepime 2000 mg IV q8h A/P CT did not reveal obstructive pathology or pyelonephritis; near complete resolution of abdominal wall hematoma PT/OT evaluations appreciated; per initial evals, likely safe to discharge home with family support once medically stable Final UCx on 07/04 growing Citrobacter freundii complex Resistant to gentamicin and Bactrim; intermediate resistance to cefotaxime; susceptible to cefepime and FQs. Completed 4 days of cefepime during admission, due to complicated infection with bacteremia was discharged to complete 6 additional days of ciprofloxacin. QT less than 480 during admission at [facility]. 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 Milton placed in the ED. voiding trial was discussed with the patient, preferred to leave this in due to increased symptoms and follow-up as outpatient with urology. Routine Milton care #Episodes of hypotension Resolved, renal function at baseline, losartan resumed #Anemia | MGUS Hgb trend 12.5 -> 9.7 -> 10.3 -> 12.1 (suspected due to volume dilution from sepsis IVF bolus) Clinically, patient denies falls, trauma, or blood in the urine or stool Chronic anemia/MGUS; follows with CCP Due for next IVIG infusion on Friday 07/07. Can keep follow-up with CCP for this Continue B12 tablets daily # CAD/HLD Continue rosuvastatin, telmisartan Per most recent cardiology visit on 04/27, patient has reportedly refused aspirin in the past due to bleeding side effects #Sleep apnea CPAP HS #Constipation MiraLAX daily Milk of magnesia PRN Placement Discussion: Discussed discharge plan with both patient and patient's family on 07/05. The plan will be for patient to return home on 07/06 on oral antibiotics (ciprofloxacin). Patient denies any history of aortic aneurysms, vascular issues, or tendinopathy. Overall, he reports is feeling much better in regard to an infection standpoint, but is still feeling weak from a deconditioning standpoint. Encouraged patient to ambulate in the room, and gradually increase activity as tolerated while admitted. Patient will plan to keep his [facility] (which his son can bring him to). Patient does have a good support system at home; lives with his ; son reports that he will be driving from his house in [place] to stay with the patient for the remainder of the week starting on Friday 07/07. Outpatient PT scripts provided, patient reports that he would like to go to [facility]. Admission HPI Per Admitting Provider Mr. Olivas is a 79-year-old male with PMH of prostate cancer, urinary tension/bladder neck contracture, CAD, BCC, depression, sleep apnea, HTN, and dyslipidemia. He presented on 07/02 after developing weakness, fatigue, and rigors the day prior. Patient report he was feeling lethargic when he woke up yesterday. Then, around 1530 he began shaking "from head to toe). He took his temperature and he had a 101.2 degree fever. He slept in his chair that night, and woke up feeling okay, but then quickly developed fever/rigors again and came to the hospital. Patient did not take any Tylenol prior to coming to the hospital, but did take ibuprofen (200 mg x 2) at 7 AM this morning. He took his regular nighttime medications last night. Remote history of recurrent UTIs. He self catheterizes approximately 3x per day due to a bladder neck contracture. He also reports that he leaks throughout the day and wears pads. He was on fosfomycin at the end of April, completed a course of Augmentin prescribed on 06/09, and was recently on nitrofurantoin, but stopped taking the full course last Saturday because he was "anemic" and he was told the nitrofurantoin was causing this. Patient does not ambulate with a walker or cane at baseline; normally, he is very active and does yard work and shopping on his own. He denies smoking, tobacco use, recent alcohol use. Patient is mildly hypotensive at 99/71, tachycardic at 112 bpm, and tachypneic at 28 RPM at time of admission. ED course: Cefepime 2000 mg IV Acetaminophen 1000 mg IV NSS 1000 mL IV ROS: Patient endorses fever, chills, headache, shoulder aches, body aches, and groin pain/suprapubic tenderness. Patient denies chest pain, chest palpitations, SOB, cough, abdominal pain, flank pain, N/V/D, change in bowel habits, burning with urination, dysuria, or blood in urine. Discharge Exam General: A&Ox3. NAD. Cooperative. HEENT: Atraumatic, normocephalic. Pulm: CTAB A&P. -wheezes, -rales, -rhonchi. Symmetrical chest rise. No increased work of breathing. No respiratory distress. Cardiac: RRR, -mrg. Radial pulses intact and symmetrical. Abdominal: Nontender, nondistended, soft. BS present. Gu: Milton in place with yellow urine Discharge Plan Discharge Items Patient Disposition: Home - Self-Care Reason For Visit: UROSEPSIS Discharge Diagnosis: UTI, sepsis Activity: As commented below Activity Comment: Gradually resume activity as tolerated Non-emergency contact: Primary Care Provider and Urologist Call non-emergency contact if: you have any medication questions, your symptoms worsen, your pain is not controlled, your pain is worsening, your pain is concerning for you, you have a fever and your temperature is above 101 Follow-up/Referrals: Frank Haskins CRNP [Primary Care Provider] - 07/16/24 10:15 am (Hospital follow up scheduled July 16 at 10:15) Leland Murray MD [Physician] - Diet: Regular Addtl Attending Provider Instructions: You are hospitalized at [facility] from 07/02 - 07/06 for a urinary tract infection leading to a bloodstream infection (known as "sepsis"). Over the course of your hospital stay, you were treated with an IV antibiotic called cefepime, as well as IV nausea medications (Zofran), and pain medications (Toradol). While your white blood cell count was elevated at 13 on arrival, it has since returned to to normal range. Given clinical improvement (no recurrence of fever, chills, or rigors) and improving labs, it is felt that you are safe to be discharged home on an oral antibiotic called ciprofloxacin. It is important to take and full course of this antibiotic, to complete a full 14- day course. We have reached out to our case management team to set up transitional care including a follow-up appointment with urology. It will be important over the next few weeks to monitor for recurrence of symptoms. While you mention that you normally do not have burning with urination when you develop urinary tract infections, other early warning signs might include lower back pain, groin pain, suprapubic tenderness, or dark/malodorous urine. If you develop any new or worsening symptoms, such as fever, chills, night sweats, vomiting, or severe/intractable groin pain, please return to the emergency department immediately. It was a pleasure taking care of you. Please reach out with any questions or concerns. Sincerely, The hospital medicine team at [facility] Pending Studies at Discharge: No Stand-Alone Forms: [facility] [employer], Smoking Cessation Medications and DC Order Prescriptions: New ciprofloxacin HCl 750 mg tablet 750 mg PO BID 6 Days Qty: 12 0RF Continued rosuvastatin 20 mg tablet 20 mg PO UD Rx Instructions: 20 mg po hs. last filled 03/08/24 66 day supply #66 telmisartan 20 mg tablet 20 mg PO DAILY Qty: 90 2RF nitroglycerin [Nitrostat] 0.4 mg tablet, sublingual 0.4 mg sublingual Q5M PRN (Reason: chest pain) Qty: 25 2RF Rx Instructions: do not exceed 3 doses per episode cyanocobalamin (vitamin B-12) 500 mcg tablet 1,000 mcg PO DAILY Discharge Orders: Discharge Order (Routine); Ordered 07/06/24 Ordered By: Sony Barker Admission Data Admit Date/Time: 07/02/24 13:51 Attending Provider: Sony Barker Admit Provider: Sony Barker Primary Care Provider: Frank Haskins Other Providers: Sony Barker Other Interventions: Discharge Summary Assessment (RN) Last Done: 07/06/24 11:01 Hospital Stay Data Consultations 07/02/24 12:52 ED Decision to Admit Stat Diagnostic Imagining Performed 07/02/24 17:31 CT Abdomen and Pelvis [CT abd pelvis wo con] Stat Discharge Instructions Given to Patient (Per Discharging Provider) You are hospitalized at [facility] from 07/02 - 07/06 for a urinary tract infection leading to a bloodstream infection (known as "sepsis"). Over the course of your hospital stay, you were treated with an IV antibiotic called cefepime, as well as IV nausea medications (Zofran), and pain medications (Toradol). While your white blood cell count was elevated at 13 on arrival, it has since returned to to normal range. Given clinical improvement (no recurrence of fever, chills, or rigors) and improving labs, it is felt that you are safe to be discharged home on an oral antibiotic called ciprofloxacin. It is important to take and full course of this antibiotic, to complete a full 14- day course. We have reached out to our case management team to set up transitional care including a follow-up appointment with urology. It will be important over the next few weeks to monitor for recurrence of symptoms. While you mention that you normally do not have burning with urination when you develop urinary tract infections, other early warning signs might include lower back pain, groin pain, suprapubic tenderness, or dark/malodorous urine. If you develop any new or worsening symptoms, such as fever, chills, night sweats, vomiting, or severe/intractable groin pain, please return to the emergency department immediately. It was a pleasure taking care of you. Please reach out with any questions or concerns. Sincerely, The hospital medicine team at [facility] Total Time Total Time Spent Total Time Spent (In Minutes): Time spend day of discharge 40 minutes including direct patient care, documentation, review of labs and images, and coordination of care. Coding Level of Care Code 68213 INP/OBS DISCH >30 MIN Diagnoses UTI (urinary tract infection) N39.0 Sepsis A41.9 Urinary retention R33.9 Prostate cancer C61 Anemia D64.9
[2024-07-06] MEDS ORDERED: EPINEPHrine INJ 1 MG/ML AMP IM PRN (11:06)
[2024-07-06] MEDS ORDERED: diphenhydrAMINE 50 MG/ML VIAL IV PRN (11:06)
[2024-07-06] MEDS: CIPROFLOXACIN / D5W 400 MG/200 ML BAG IV STA (11:43)
[2024-07-06 12:01] VITALS: TEMP 98.1
[2024-07-06 13:43] VITALS: BP 126/80; RESP 16; O2SAT 98
[2024-07-06 15:32] VITALS: PULSE 99
== END 2024-07-06 15:55 | disposition home or self-care (01) | DRG 698 ==
LOC: ED 11:25 → 2S 13:51 → SUATTDRO 13:51 → 2S 14:52